=== PATIENT | female | born 1955 | race Caucasian/White ===

== ENCOUNTER → 2018-05-06 | Outpatient (CLI) | payer MEDICARE, OTHER ==
--- NOTE | 2018-05-16 15:41 | REP ---
Digital diagnostic bilateral mammography with CAD: History: History of right breast carcinoma status post lumpectomy and radiation therapy. The patient reports prior lumpectomies in 2003 and in 2018. The patient reports new indentation near the surgery site times 2 months. Report was delayed pending retrieval of prior breast imaging studies, the prior mammography is from July 23, 2017. Findings: Scattered fibroglandular elements are noted bilaterally. The left breast is unchanged and unremarkable on today's mammography and compared with the July 23, 2017 prior study. There is increased contour deformity in the upper outer quadrant of the right breast. There are some dystrophic calcifications in the upper outer quadrant of the right breast which are unchanged. No neodensity is seen. No mass lesion is observed. No microcalcification is observed. Impression: BI-RADS/ACR category 2 mammogram. Benign finding(s). Routine annual screening mammography (for women over age 40). There is contour indentation in the upper aspect of the right breast on MLO view more prominent than on the July 23, 2017 study. This is consistent with post-treatment changes. BI-RADS category 2 benign breast imaging findings. Clinical followup is advised. Repeat screening mammography recommended 1 year bilaterally. This mammogram was interpreted with the aid of an FDA-approved computer-aided detection system. The patient states she had a clinical breast exam in February 2018. The patient letter being requested is M2. Electronically Signed by Camden Delarosa MD 05/16/2018 07:44 P
== END ==
LOC: M RAD 13:22
PROVIDERS: ATTEND Internal Medicine Hematology & Oncology
DX: D05.11 Intraductal carcinoma in situ of right breast (principal); R92.1 Mammographic calcification found on diagnostic imaging of breast; Z90.11 Acquired absence of right breast and nipple

== ENCOUNTER → 2018-05-06 | Outpatient (CLI) | payer MEDICARE, OTHER ==
--- NOTE | 2018-05-11 15:20 | DEXA ---
AP SPINE L1 - L4 1.580 3.1 4.7 LT FEMUR TOTAL 0.988 -0.2 1.0 LT NECK 0.911 -0.9 0.5 RT FEMUR TOTAL 0.992 -0.1 1.1 RT NECK 0.909 -0.9 0.5 TOTAL BODY TOTAL OTHER COMMENTS: Normal bone densitometry of the spine and hips. The density of the spine is increased 12.3% since 11/01/2009. The density of the left hip has increased 5.7% since 11/01/2009. The density of the right hip has decreased 0.7% since 11/01/2009. The increased density of the spine does represent a significant change. The increased density of the left hip does represent a significant change. The decreased density of the right hip does not represent a significant change. FOLLOW-UP: Recommendation for the next bone density exam: 5 years. ESTEFANÍA
== END ==
LOC: M WHC 12:08
PROVIDERS: ATTEND Internal Medicine Hematology & Oncology
DX: M81.0 Age-related osteoporosis without current pathological fracture (principal); D05.11 Intraductal carcinoma in situ of right breast; R92.1 Mammographic calcification found on diagnostic imaging of breast; Z90.11 Acquired absence of right breast and nipple

== ENCOUNTER → 2018-11-07 | Outpatient (CLI) | payer MEDICARE, OTHER ==
[2018-11-07 15:38] LABS: BASO # 0.1 10^3/uL (0.0-0.2); BASO % 1.1 % (0.0-1.0); EOS # 0.2 10^3/uL (0.0-0.50); EOS % 2.1 % (0.0-3.0); HEMATOCRIT 29.8 % (36.0-47.0); HEMOGLOBIN 9.6 g/dl (12.0-15.5); LYMPH # 1.8 10^3/uL (1.5-4.5); MEAN CORPUSCULAR HEMOGLOBIN 30.8 pg (27.0-33.0); MEAN CORPUSCULAR HGB CONC 32.2 g/dl (32.0-36.5); MEAN CORPUSCULAR VOLUME 95.5 fl (80.0-96.0); MONO # 0.5 10^3/uL (0.0-0.8); MONO % 7.7 % (0.0-5.0); NEUTROPHILS # 4.3 10^3/uL (1.8-7.7); RED BLOOD COUNT 3.12 10^6/uL (4.00-5.40)
[2018-11-07 15:44] LABS: PLATELET COUNT, AUTOMATED 87 10^3/uL (150-450)
== END ==
LOC: M ADAMS 13:31
DX: D69.6 Thrombocytopenia, unspecified (principal)

== ENCOUNTER → 2018-11-14 | Outpatient (REF) | payer MEDICARE, OTHER ==
[2018-11-14 13:10] LABS: BASO # 0.1 10^3/uL (0.0-0.2); BASO % 1.5 % (0.0-1.0); EOS # 0.1 10^3/uL (0.0-0.50); EOS % 2.3 % (0.0-3.0); HEMATOCRIT 28.9 % (36.0-47.0); HEMOGLOBIN 9.2 g/dl (12.0-15.5); LYMPH # 1.7 10^3/uL (1.5-4.5); MEAN CORPUSCULAR HEMOGLOBIN 31.7 pg (27.0-33.0); MEAN CORPUSCULAR HGB CONC 31.8 g/dl (32.0-36.5); MEAN CORPUSCULAR VOLUME 99.7 fl (80.0-96.0); MONO # 0.5 10^3/uL (0.0-0.8); MONO % 8.8 % (0.0-5.0); NEUTROPHILS # 3.4 10^3/uL (1.8-7.7); WHITE BLOOD COUNT 6.1 10^3/uL (4.0-10.0)
[2018-11-14 13:11] LABS: PLATELET COUNT, AUTOMATED 99 10^3/uL (150-450)
== END ==
LOC: M LABDRWAD 12:08
DX: C88.0 Waldenstrom macroglobulinemia (principal); D69.9 Hemorrhagic condition, unspecified

== ENCOUNTER → 2018-12-28 | Outpatient (REF) | payer MEDICARE, OTHER ==
[2018-12-28 12:37] LABS: HEMATOCRIT 21.4 % (36.0-47.0); MEAN CORPUSCULAR HEMOGLOBIN 31.7 pg (27.0-33.0); MEAN CORPUSCULAR HGB CONC 30.8 g/dl (32.0-36.5); MEAN CORPUSCULAR VOLUME 102.9 fl (80.0-96.0); PLATELET COUNT, AUTOMATED 101 10^3/uL (150-450); RED BLOOD COUNT 2.08 10^6/uL (4.00-5.40); WHITE BLOOD COUNT 7.1 10^3/uL (4.0-10.0)
[2018-12-28 12:58] LABS: HEMOGLOBIN 6.6 g/dl (12.0-15.5)
[2018-12-28 13:13] LABS: ANISOCYTOSIS 1+; EOSINOPHILS 1 % (0-5); LYMPHOCYTES 27 % (16-52); METAMYELOCYTES 4 % (0-0); MONOCYTES 7 % (0-8); NEUTROPHILS 61 % (28-66); PLATELET ESTIMATE DECREASED (NORMAL)
== END ==
LOC: M LABDRWAD 11:52
DX: D69.6 Thrombocytopenia, unspecified (principal); C88.0 Waldenstrom macroglobulinemia

== ENCOUNTER → 2019-01-16 | Outpatient (REF) | payer MEDICARE, OTHER ==
[2019-01-16 19:58] LABS: HEMATOCRIT 20.6 % (36.0-47.0); MEAN CORPUSCULAR HEMOGLOBIN 32.5 pg (27.0-33.0); MEAN CORPUSCULAR HGB CONC 31.6 g/dl (32.0-36.5); PLATELET COUNT, AUTOMATED 112 10^3/uL (150-450)
[2019-01-16 20:02] LABS: HEMOGLOBIN 6.5 g/dl (12.0-15.5)
[2019-01-16 20:39] LABS: BASOPHILS 2 % (0-1); EOSINOPHILS 3 % (0-3); LYMPHOCYTES 18 % (16-44); METAMYELOCYTES 1 % (0-0); MONOCYTES 7 % (0-5); MYELOCYTES 1 % (0-0); NEUTROPHILS 63 % (28-66)
[2019-01-16 20:40] LABS: ANISOCYTOSIS 1+; PLATELET ESTIMATE DECREASED (NORMAL)
[2019-01-16 20:41] LABS: POLYCHROMASIA 1+
== END ==
LOC: M LABDRWAD 19:05
DX: C88.0 Waldenstrom macroglobulinemia (principal); D69.6 Thrombocytopenia, unspecified

== ENCOUNTER → 2019-01-30 | Outpatient (REF) | payer MEDICARE, OTHER ==
[2019-01-30 12:02] LABS: HEMATOCRIT 21.5 % (36.0-47.0); MEAN CORPUSCULAR HEMOGLOBIN 31.3 pg (27.0-33.0); MEAN CORPUSCULAR HGB CONC 31.2 g/dl (32.0-36.5); MEAN CORPUSCULAR VOLUME 100.5 fl (80.0-96.0); PLATELET COUNT, AUTOMATED 104 10^3/uL (150-450); RED BLOOD COUNT 2.14 10^6/uL (4.00-5.40); WHITE BLOOD COUNT 5.8 10^3/uL (4.0-10.0)
[2019-01-30 12:12] LABS: HEMOGLOBIN 6.7 g/dl (12.0-15.5)
[2019-01-30 12:58] LABS: BASOPHILS 2 % (0-1); EOSINOPHILS 1 % (0-3); LYMPHOCYTES 20 % (16-44); METAMYELOCYTES 2 % (0-0); MONOCYTES 4 % (0-5); MYELOCYTES 2 % (0-0); NEUTROPHILS 68 % (28-66)
[2019-01-30 12:59] LABS: ANISOCYTOSIS 2+; OVALOCYTES 1+; PLATELET ESTIMATE DECREASED (NORMAL)
== END ==
LOC: M LABDRWAD 11:13
PROVIDERS: ATTEND Internal Medicine Hematology & Oncology
DX: C85.90 Non-Hodgkin lymphoma, unspecified, unspecified site (principal)

== ENCOUNTER → 2019-02-02 | Outpatient (REF) | payer MEDICARE, OTHER ==
[2019-02-02 13:01] LABS: HEMATOCRIT 27.1 % (36.0-47.0); HEMOGLOBIN 8.7 g/dl (12.0-15.5); MEAN CORPUSCULAR HEMOGLOBIN 31.5 pg (27.0-33.0); MEAN CORPUSCULAR HGB CONC 32.1 g/dl (32.0-36.5); MEAN CORPUSCULAR VOLUME 98.2 fl (80.0-96.0); RED BLOOD COUNT 2.76 10^6/uL (4.00-5.40); WHITE BLOOD COUNT 5.2 10^3/uL (4.0-10.0)
[2019-02-02 13:48] LABS: PLATELET COUNT, AUTOMATED 89 10^3/uL (150-450)
[2019-02-02 13:56] LABS: ANISOCYTOSIS 1+; BASOPHILS 2 % (0-1); EOSINOPHILS 2 % (0-3); LYMPHOCYTES 24 % (16-44); METAMYELOCYTES 2 % (0-0); MONOCYTES 9 % (0-5); MYELOCYTES 3 % (0-0); NEUTROPHILS 57 % (28-66); OVALOCYTES 1+; PLATELET ESTIMATE DECREASED (NORMAL)
== END ==
LOC: M LABDRWAD 12:18
DX: C88.0 Waldenstrom macroglobulinemia (principal); D69.6 Thrombocytopenia, unspecified

== ENCOUNTER → 2019-02-15 | Outpatient (REF) | payer MEDICARE, OTHER ==
[2019-02-15 17:36] LABS: HEMATOCRIT 25.7 % (36.0-47.0); HEMOGLOBIN 8.2 g/dl (12.0-15.5); MEAN CORPUSCULAR HEMOGLOBIN 30.7 pg (27.0-33.0); MEAN CORPUSCULAR HGB CONC 31.9 g/dl (32.0-36.5); MEAN CORPUSCULAR VOLUME 96.3 fl (80.0-96.0); RED BLOOD COUNT 2.67 10^6/uL (4.00-5.40); WHITE BLOOD COUNT 5.3 10^3/uL (4.0-10.0)
[2019-02-15 18:03] LABS: PLATELET COUNT, AUTOMATED 89 10^3/uL (150-450)
[2019-02-15 18:25] LABS: ANISOCYTOSIS 2+; ATYPICAL LYMPH 3 % (0-5); BASOPHILS 2 % (0-1); LYMPHOCYTES 18 % (16-44); METAMYELOCYTES 2 % (0-0); MONOCYTES 8 % (0-5); NEUTROPHILS 62 % (28-66); PLATELET ESTIMATE DECREASED (NORMAL)
== END ==
LOC: M LABDRWAD 16:00
DX: D69.6 Thrombocytopenia, unspecified (principal); C88.0 Waldenstrom macroglobulinemia

== ENCOUNTER → 2019-02-23 | Outpatient (REF) | payer MEDICARE, OTHER ==
[2019-02-23 10:57] LABS: HEMATOCRIT 22.5 % (36.0-47.0); HEMOGLOBIN 7.3 g/dl (12.0-15.5); MEAN CORPUSCULAR HEMOGLOBIN 31.9 pg (27.0-33.0); MEAN CORPUSCULAR HGB CONC 32.4 g/dl (32.0-36.5); MEAN CORPUSCULAR VOLUME 98.3 fl (80.0-96.0); PLATELET COUNT, AUTOMATED 100 10^3/uL (150-450); RED BLOOD COUNT 2.29 10^6/uL (4.00-5.40); WHITE BLOOD COUNT 6.2 10^3/uL (4.0-10.0)
[2019-02-23 12:10] LABS: ANISOCYTOSIS 2+; ATYPICAL LYMPH 2 % (0-5); BASOPHILS 3 % (0-1); EOSINOPHILS 3 % (0-3); LYMPHOCYTES 25 % (16-44); METAMYELOCYTES 2 % (0-0); MONOCYTES 6 % (0-5); MYELOCYTES 2 % (0-0); NEUTROPHILS 56 % (28-66); PLATELET ESTIMATE DECREASED (NORMAL)
== END ==
LOC: M LABDRWAD 10:32
DX: D69.6 Thrombocytopenia, unspecified (principal); C88.0 Waldenstrom macroglobulinemia

== ENCOUNTER → 2019-04-12 | Outpatient (CLI) | payer MEDICARE, MEDICAID ==
[2019-04-12 16:41] LABS: BASO % 0.2 % (0.0-1.0); HEMATOCRIT 26.9 % (36.0-47.0); HEMOGLOBIN 8.7 g/dl (12.0-15.5); LYMPH # 1.2 10^3/uL (1.5-5.0); LYMPH % 11.8 % (24.0-44.0); MEAN CORPUSCULAR HEMOGLOBIN 32.7 pg (27.0-33.0); MEAN CORPUSCULAR HGB CONC 32.3 g/dl (32.0-36.5); MEAN CORPUSCULAR VOLUME 101.1 fl (80.0-96.0); MONO # 0.7 10^3/uL (0.0-0.8); NEUTROPHILS # 7.7 10^3/uL (1.5-8.5); NEUTROPHILS % 79.2 % (36.0-66.0); PLATELET COUNT, AUTOMATED 113 10^3/uL (150-450); RED BLOOD COUNT 2.66 10^6/uL (4.00-5.40); WHITE BLOOD COUNT 9.8 10^3/uL (4.0-10.0)
== END ==
LOC: M LAB 15:33
DX: C88.0 Waldenstrom macroglobulinemia (principal); D69.6 Thrombocytopenia, unspecified

== ENCOUNTER → 2019-05-09 | Outpatient (REF) | payer MEDICARE, MEDICAID ==
[2019-05-09 12:36] LABS: BASO # 0.1 10^3/uL (0.0-0.2); BASO % 1.6 % (0.0-1.0); EOS # 0.2 10^3/uL (0.0-0.5); EOS % 4.7 % (0.0-3.0); HEMATOCRIT 33.1 % (36.0-47.0); HEMOGLOBIN 10.3 g/dl (12.0-15.5); LYMPH # 1.3 10^3/uL (1.5-5.0); LYMPH % 28.1 % (24.0-44.0); MEAN CORPUSCULAR HEMOGLOBIN 32.7 pg (27.0-33.0); MEAN CORPUSCULAR HGB CONC 31.1 g/dl (32.0-36.5); MEAN CORPUSCULAR VOLUME 105.1 fl (80.0-96.0); MONO # 0.4 10^3/uL (0.0-0.8); MONO % 9.8 % (0.0-5.0); NEUTROPHILS # 2.3 10^3/uL (1.5-8.5); NEUTROPHILS % 51.1 % (36.0-66.0); PLATELET COUNT, AUTOMATED 129 10^3/uL (150-450); RED BLOOD COUNT 3.15 10^6/uL (4.00-5.40); WHITE BLOOD COUNT 4.5 10^3/uL (4.0-10.0)
== END ==
LOC: M LABDRWAD 12:16
PROVIDERS: ATTEND Nurse Practitioner Adult Health
DX: C85.90 Non-Hodgkin lymphoma, unspecified, unspecified site (principal)

== ENCOUNTER → 2019-07-20 | Outpatient (CLI) | payer MEDICARE, MEDICAID ==
--- NOTE | 2019-07-20 10:32 | REPMRS ---
Patient History The patient states she has not had a clinical breast exam in over a year. Patient is postmenopausal and has history of cancer in the left breast at age 48. Family history of colorectal cancer at age 80 in father, prostate cancer at age 50 in brother. Took tamoxifen for 5 years. Diagnostic Bilateral Mammo: July 20, 2019 - Exam #: [id number] Bilateral CC and MLO view(s) were taken. Technologist: Prema Baires, Technologist Prior study comparison: May 06, 2018, digital mammo diagnostic bilateral, performed at [facility]. July 23, 2017, digital mammo diagnostic bilateral, performed at [facility]. FINDINGS: There are scattered fibroglandular densities. There are stable post treatment changes in the roight breast. There has been no change in the appearance of the mammogram from the prior studies. There is a mild amount of scattered fibroglandular density which is fairly symmetric. There is no interval development of dominant mass, architectural distortion, or grouped microcalcification suggestive of malignancy. 3-D tomosynthesis shows no additional findings. Assessment: BI-RADS/ACR category 2 mammogram. Benign Findings. Recommendation Routine screening mammogram of both breasts in 1 year (for women over age 40).. This mammogram was interpreted with the aid of an FDA-approved computer-aided dectection system. Electronically Signed By: Florin Delarosa MD 07/20/19 [id number]
== END ==
LOC: M WHC 09:25
PROVIDERS: ATTEND Nurse Practitioner Family
DX: C50.911 Malignant neoplasm of unspecified site of right female breast (principal); Z17.0 Estrogen receptor positive status [ER+]; N63.10 Unspecified lump in the right breast, unspecified quadrant; R92.8 Other abnormal and inconclusive findings on diagnostic imaging of breast; Z78.0 Asymptomatic menopausal state; Z80.0 Family history of malignant neoplasm of digestive organs
CPT/HCPCS: 77066; G0279

== ENCOUNTER → 2019-08-17 | Outpatient (CLI) | payer MEDICARE, MEDICAID ==
[2019-08-17 19:10] LABS: BASO # 0.1 10^3/uL (0.0-0.2); BASO % 1.2 % (0.0-1.0); EOS # 0.2 10^3/uL (0.0-0.5); EOS % 3.1 % (0.0-3.0); HEMATOCRIT 34.1 % (36.0-47.0); HEMOGLOBIN 11.4 g/dl (12.0-15.5); LYMPH # 1.3 10^3/uL (1.5-5.0); LYMPH % 27.2 % (24.0-44.0); MEAN CORPUSCULAR HEMOGLOBIN 32.3 pg (27.0-33.0); MEAN CORPUSCULAR HGB CONC 33.4 g/dl (32.0-36.5); MEAN CORPUSCULAR VOLUME 96.6 fl (80.0-96.0); MONO # 0.4 10^3/uL (0.0-0.8); MONO % 9.1 % (0.0-5.0); NEUTROPHILS # 2.9 10^3/uL (1.5-8.5); PLATELET COUNT, AUTOMATED 139 10^3/uL (150-450); RED BLOOD COUNT 3.53 10^6/uL (4.00-5.40); WHITE BLOOD COUNT 4.9 10^3/uL (4.0-10.0)
[2019-08-17 20:07] LABS: ALBUMIN 3.6 GM/DL (3.2-5.2); ALT/SGPT 50 U/L (12-78); BLOOD UREA NITROGEN 16 MG/DL (7-18); CALCIUM LEVEL 9.1 MG/DL (8.8-10.2); CARBON DIOXIDE LEVEL 30 MEQ/L (21-32); CHLORIDE LEVEL 103 MEQ/L (98-107); CREATININE FOR GFR 0.91 MG/DL (0.55-1.30); GLOMERULAR FILTRATION RATE > 60.0 (>45); GLUCOSE, FASTING 90 MG/DL (70-100); IMMUNOGLOBULIN A 23.9 MG/DL (70-400); IMMUNOGLOBULIN G 279 MG/DL (681-1648); LDH LACTATE DEHYDROGENASE 156 U/L (84-246); POTASSIUM SERUM 4.1 MEQ/L (3.5-5.1); SODIUM LEVEL 139 MEQ/L (136-145); TOTAL PROTEIN 6.4 GM/DL (6.4-8.2)
== END ==
LOC: M LABDRWAD 15:21
PROVIDERS: ATTEND Nurse Practitioner Adult Health
DX: C85.90 Non-Hodgkin lymphoma, unspecified, unspecified site (principal)

== ENCOUNTER → 2019-09-28 | Outpatient (REF) | payer MEDICARE, MEDICAID ==
[2019-09-28 17:50] LABS: BASO # 0.1 10^3/uL (0.0-0.2); BASO % 1.1 % (0.0-1.0); EOS # 0.2 10^3/uL (0.0-0.5); EOS % 3.7 % (0.0-3.0); HEMATOCRIT 32.5 % (36.0-47.0); HEMOGLOBIN 10.8 g/dl (12.0-15.5); LYMPH # 1.6 10^3/uL (1.5-5.0); LYMPH % 29.7 % (24.0-44.0); MEAN CORPUSCULAR HEMOGLOBIN 32.3 pg (27.0-33.0); MEAN CORPUSCULAR HGB CONC 33.2 g/dl (32.0-36.5); MEAN CORPUSCULAR VOLUME 97.3 fl (80.0-96.0); MONO # 0.5 10^3/uL (0.0-0.8); MONO % 10.1 % (0.0-5.0); NEUTROPHILS # 2.9 10^3/uL (1.5-8.5); NEUTROPHILS % 54.7 % (36.0-66.0); PLATELET COUNT, AUTOMATED 139 10^3/uL (150-450); RED BLOOD COUNT 3.34 10^6/uL (4.00-5.40); WHITE BLOOD COUNT 5.4 10^3/uL (4.0-10.0)
[2019-09-28 18:49] LABS: ALBUMIN 3.6 GM/DL (3.2-5.2); BILIRUBIN,TOTAL 0.8 MG/DL (0.2-1.0); CALCIUM LEVEL 8.5 MG/DL (8.8-10.2); CREATININE FOR GFR 1.01 MG/DL (0.55-1.30); GLOMERULAR FILTRATION RATE 58.4 (>45); IMMUNOGLOBULIN A 23.5 MG/DL (70-400); POTASSIUM SERUM 4.1 MEQ/L (3.5-5.1); TOTAL PROTEIN 6.4 GM/DL (6.4-8.2)
== END ==
LOC: M LABDRWAD 16:47
PROVIDERS: ATTEND Nurse Practitioner Adult Health
DX: C85.90 Non-Hodgkin lymphoma, unspecified, unspecified site (principal)

== ENCOUNTER → 2019-12-28 | Outpatient (REF) | payer MEDICARE, MEDICAID ==
[2019-12-28 19:27] LABS: BASO # 0.1 10^3/uL (0.0-0.2); BASO % 1.4 % (0.0-1.0); EOS # 0.2 10^3/uL (0.0-0.5); EOS % 2.8 % (0.0-3.0); HEMATOCRIT 34.3 % (36.0-47.0); HEMOGLOBIN 11.1 g/dl (12.0-15.5); LYMPH # 1.3 10^3/uL (1.5-5.0); LYMPH % 22.2 % (24.0-44.0); MEAN CORPUSCULAR HEMOGLOBIN 32.5 pg (27.0-33.0); MEAN CORPUSCULAR HGB CONC 32.4 g/dl (32.0-36.5); MEAN CORPUSCULAR VOLUME 100.3 fl (80.0-96.0); MONO # 0.5 10^3/uL (0.0-0.8); NEUTROPHILS # 3.7 10^3/uL (1.5-8.5); NEUTROPHILS % 63.7 % (36.0-66.0); PLATELET COUNT, AUTOMATED 126 10^3/uL (150-450); RED BLOOD COUNT 3.42 10^6/uL (4.00-5.40); WHITE BLOOD COUNT 5.8 10^3/uL (4.0-10.0)
[2019-12-28 20:21] LABS: BILIRUBIN,TOTAL 0.9 MG/DL (0.2-1.0); CALCIUM LEVEL 8.8 MG/DL (8.8-10.2); CREATININE FOR GFR 1.06 MG/DL (0.55-1.30); GLOMERULAR FILTRATION RATE 55.2 (>45); IMMUNOGLOBULIN A 28.8 MG/DL (70-400); POTASSIUM SERUM 4.2 MEQ/L (3.5-5.1); TOTAL PROTEIN 6.8 GM/DL (6.4-8.2)
== END ==
LOC: M LABDRWAD 18:05
PROVIDERS: ATTEND Internal Medicine Hematology & Oncology
DX: C88.0 Waldenstrom macroglobulinemia (principal)

== ENCOUNTER → 2020-03-28 | Outpatient (REF) | payer MEDICARE, MEDICAID ==
[2020-03-28 13:01] LABS: BASO # 0.1 10^3/uL (0.0-0.2); BASO % 1.2 % (0.0-1.0); EOS # 0.2 10^3/uL (0.0-0.5); EOS % 4.7 % (0.0-3.0); HEMATOCRIT 34.2 % (36.0-47.0); HEMOGLOBIN 10.8 g/dl (12.0-15.5); LYMPH # 1.2 10^3/uL (1.5-5.0); LYMPH % 25.4 % (24.0-44.0); MEAN CORPUSCULAR HEMOGLOBIN 31.7 pg (27.0-33.0); MEAN CORPUSCULAR HGB CONC 31.6 g/dl (32.0-36.5); MEAN CORPUSCULAR VOLUME 100.3 fl (80.0-96.0); MONO # 0.6 10^3/uL (0.0-0.8); MONO % 11.5 % (0.0-5.0); NEUTROPHILS # 2.7 10^3/uL (1.5-8.5); NEUTROPHILS % 54.7 % (36.0-66.0); PLATELET COUNT, AUTOMATED 106 10^3/uL (150-450); RED BLOOD COUNT 3.41 10^6/uL (4.00-5.40); WHITE BLOOD COUNT 4.9 10^3/uL (4.0-10.0)
[2020-03-28 14:05] LABS: ALBUMIN 3.7 GM/DL (3.2-5.2); ALT/SGPT 25 U/L (12-78); BILIRUBIN,TOTAL 0.8 MG/DL (0.2-1.0); BLOOD UREA NITROGEN 19 MG/DL (7-18); CARBON DIOXIDE LEVEL 30 MEQ/L (21-32); CHLORIDE LEVEL 102 MEQ/L (98-107); CREATININE FOR GFR 0.96 MG/DL (0.55-1.30); GLOMERULAR FILTRATION RATE > 60.0 (>45); GLUCOSE, FASTING 74 MG/DL (70-100); IMMUNOGLOBULIN A 29.2 MG/DL (70-400); IMMUNOGLOBULIN G 337 MG/DL (681-1648); POTASSIUM SERUM 4.3 MEQ/L (3.5-5.1); SODIUM LEVEL 137 MEQ/L (136-145); TOTAL PROTEIN 6.5 GM/DL (6.4-8.2)
== END ==
LOC: M LABDRWAD 12:29
PROVIDERS: ATTEND Internal Medicine Hematology & Oncology
DX: C88.0 Waldenstrom macroglobulinemia (principal)

== ENCOUNTER → 2020-07-15 | Outpatient (REF) | payer MEDICARE, MEDICAID ==
[2020-07-15 17:01] LABS: HEMATOCRIT 26.8 % (36.0-47.0); HEMOGLOBIN 8.2 g/dl (12.0-15.5); MEAN CORPUSCULAR HGB CONC 30.6 g/dl (32.0-36.5); MEAN CORPUSCULAR VOLUME 104.7 fl (80.0-96.0); RED BLOOD COUNT 2.56 10^6/uL (4.00-5.40); WHITE BLOOD COUNT 4.8 10^3/uL (4.0-10.0)
[2020-07-15 17:04] LABS: PLATELET COUNT, AUTOMATED 90 10^3/uL (150-450)
[2020-07-15 18:05] LABS: ALBUMIN 3.8 GM/DL (3.2-5.2); CALCIUM LEVEL 8.6 MG/DL (8.8-10.2); CREATININE FOR GFR 1.08 MG/DL (0.55-1.30); GLOMERULAR FILTRATION RATE 53.9 (>45); IMMUNOGLOBULIN A 27.5 MG/DL (70-400); POTASSIUM SERUM 4.3 MEQ/L (3.5-5.1); TOTAL PROTEIN 6.7 GM/DL (6.4-8.2)
[2020-07-15 19:34] LABS: ATYPICAL LYMPH 2 % (0-5); BASOPHILS 2 % (0-1); EOSINOPHILS 4 % (0-3); LYMPHOCYTES 35 % (16-44); MONOCYTES 11 % (0-5); NEUTROPHILS 45 % (28-66)
[2020-07-15 19:36] LABS: ANISOCYTOSIS 1+
[2020-07-15 19:37] LABS: PLATELET ESTIMATE DECREASED (NORMAL)
== END ==
LOC: M LABDRWAD 16:05
PROVIDERS: ATTEND Nurse Practitioner Family
DX: C88.0 Waldenstrom macroglobulinemia (principal)

== ENCOUNTER → 2020-09-30 | Outpatient (REF) | payer OTHER, MEDICAID ==
[~2020-09-30] MED LIST: BENDAMUSTINE; CALC600T61 PO; CELE10TA PO; FOLI400T13 PO; LETR2.5T2 PO; [UNRECOGNIZED DRUG - OTHER]; vitamin d3 PO
[2020-09-30 18:20] LABS: BASO % 0.9 % (0.0-1.0); EOS # 0.2 10^3/uL (0.0-0.5); EOS % 4.1 % (0.0-3.0); HEMATOCRIT 21.5 % (36.0-47.0); LYMPH # 1.2 10^3/uL (1.5-5.0); LYMPH % 26.3 % (24.0-44.0); MEAN CORPUSCULAR HEMOGLOBIN 32.5 pg (27.0-33.0); MEAN CORPUSCULAR HGB CONC 30.2 g/dl (32.0-36.5); MEAN CORPUSCULAR VOLUME 107.5 fl (80.0-96.0); MONO # 0.4 10^3/uL (0.0-0.8); NEUTROPHILS # 2.6 10^3/uL (1.5-8.5); NEUTROPHILS % 55.7 % (36.0-66.0); WHITE BLOOD COUNT 4.6 10^3/uL (4.0-10.0)
[2020-09-30 18:50] LABS: ALBUMIN 3.6 GM/DL (3.2-5.2); ALT/SGPT 17 U/L (12-78); BILIRUBIN,TOTAL 1.3 MG/DL (0.2-1.0); BLOOD UREA NITROGEN 18 MG/DL (7-18); CALCIUM LEVEL 8.6 MG/DL (8.8-10.2); CARBON DIOXIDE LEVEL 26 MEQ/L (21-32); CHLORIDE LEVEL 103 MEQ/L (98-107); CREATININE FOR GFR 0.98 MG/DL (0.55-1.30); GLOMERULAR FILTRATION RATE > 60.0 (>45); GLUCOSE, FASTING 95 MG/DL (70-100); IMMUNOGLOBULIN G 317 MG/DL (681-1648); LDH LACTATE DEHYDROGENASE 269 U/L (84-246); POTASSIUM SERUM 4.1 MEQ/L (3.5-5.1); SODIUM LEVEL 137 MEQ/L (136-145); TOTAL PROTEIN 6.7 GM/DL (6.4-8.2)
[2020-09-30 19:00] LABS: HEMOGLOBIN 6.5 g/dl (12.0-15.5); PLATELET COUNT, AUTOMATED 82 10^3/uL (150-450)
== END ==
LOC: M LABDRWAD 16:27 → M LAB REF 16:27
PROVIDERS: ATTEND Nurse Practitioner Family
DX: D64.9 Anemia, unspecified (principal)

== ENCOUNTER → 2020-10-03 | Outpatient (REF) | payer OTHER, MEDICAID ==
[2020-10-03 12:58] LABS: BASO # 0.1 10^3/uL (0.0-0.2); BASO % 1.8 % (0.0-1.0); EOS # 0.2 10^3/uL (0.0-0.5); HEMATOCRIT 31.1 % (36.0-47.0); HEMOGLOBIN 9.8 g/dl (12.0-15.5); LYMPH # 1.2 10^3/uL (1.5-5.0); LYMPH % 27.3 % (24.0-44.0); MEAN CORPUSCULAR HEMOGLOBIN 31.1 pg (27.0-33.0); MEAN CORPUSCULAR HGB CONC 31.5 g/dl (32.0-36.5); MEAN CORPUSCULAR VOLUME 98.7 fl (80.0-96.0); MONO # 0.4 10^3/uL (0.0-0.8); NEUTROPHILS # 2.4 10^3/uL (1.5-8.5); NEUTROPHILS % 54.2 % (36.0-66.0); RED BLOOD COUNT 3.15 10^6/uL (4.00-5.40); WHITE BLOOD COUNT 4.5 10^3/uL (4.0-10.0)
[2020-10-03 13:00] LABS: PLATELET COUNT, AUTOMATED 90 10^3/uL (150-450)
== END ==
LOC: M LABDRWAD 12:24
PROVIDERS: ATTEND Nurse Practitioner Family
DX: D64.9 Anemia, unspecified (principal)

== ENCOUNTER → 2020-10-10 | Outpatient (REF) | payer OTHER, MEDICAID ==
[2020-10-10 17:56] LABS: BASO # 0.1 10^3/uL (0.0-0.2); BASO % 1.4 % (0.0-1.0); EOS # 0.1 10^3/uL (0.0-0.5); EOS % 3.5 % (0.0-3.0); HEMATOCRIT 27.3 % (36.0-47.0); HEMOGLOBIN 8.4 g/dl (12.0-15.5); LYMPH % 25.9 % (24.0-44.0); MEAN CORPUSCULAR HGB CONC 30.8 g/dl (32.0-36.5); MEAN CORPUSCULAR VOLUME 100.7 fl (80.0-96.0); MONO # 0.4 10^3/uL (0.0-0.8); MONO % 9.5 % (2.0-8.0); NEUTROPHILS % 54.8 % (36.0-66.0); PLATELET COUNT, AUTOMATED 80 10^3/uL (150-450); RED BLOOD COUNT 2.71 10^6/uL (4.00-5.40); WHITE BLOOD COUNT 3.7 10^3/uL (4.0-10.0)
== END ==
LOC: M PLALAB 16:53
PROVIDERS: ATTEND Nurse Practitioner Family
DX: D64.9 Anemia, unspecified (principal)

== ENCOUNTER 2020-10-24 20:16 | Emergency (ER) | payer OTHER, MEDICAID ==
[~2020-10-24] VITALS: Ht 160 cm; Wt 63.5 kg
[2020-10-24] MEDS ORDERED: LETR2.5T2 PO (20:35)
[2020-10-24] MEDS ORDERED: CALC600T61 PO (20:38)
[2020-10-24] MEDS ORDERED: CELE10TA PO (20:38)
[2020-10-24] MEDS ORDERED: vitamin d3 PO (20:38)
[2020-10-24] MEDS ORDERED: FOLI400T13 PO (20:38)
[2020-10-24] MEDS ORDERED: [UNRECOGNIZED DRUG - OTHER] (20:40)
[2020-10-24] MEDS ORDERED: BENDAMUSTINE (20:40)
[2020-10-24 22:31] LABS: MEAN CORPUSCULAR HEMOGLOBIN 30.4 pg (27.0-33.0); MEAN CORPUSCULAR HGB CONC 31.8 g/dl (32.0-36.5); MEAN CORPUSCULAR VOLUME 95.7 fl (80.0-96.0); WHITE BLOOD COUNT 1.6 10^3/uL (4.0-10.0)
[2020-10-24 22:52] LABS: PLATELET COUNT, AUTOMATED 86 10^3/uL (150-450)
[2020-10-24 23:05] LABS: BASOPHILS 2 % (0-1); EOSINOPHILS 4 % (0-3); LYMPHOCYTES 6 % (16-44); MONOCYTES 10 % (0-5); NEUTROPHILS 74 % (28-66)
[2020-10-24 23:06] LABS: ANISOCYTOSIS 1+; PLATELET ESTIMATE DECREASED (NORMAL)
[2020-10-24 23:16] LABS: ALBUMIN 3.2 GM/DL (3.2-5.2); BILIRUBIN,DIRECT 0.4 MG/DL (0.0-0.2); BILIRUBIN,TOTAL 2.2 MG/DL (0.2-1.0); CALCIUM LEVEL 7.9 MG/DL (8.8-10.2); CREATININE FOR GFR 1.06 MG/DL (0.55-1.30); POTASSIUM SERUM 4.1 MEQ/L (3.5-5.1); TOTAL PROTEIN 5.8 GM/DL (6.4-8.2)
--- NOTE | 2020-10-24 23:21 | REPVR ---
PROCEDURE INFORMATION: Exam: XR Chest Exam date and time: 10/24/20 (9:44pm) Age: 65 years old Clinical indication: Fever TECHNIQUE: Imaging protocol: XR of the chest Views: 2 views COMPARISON: No relevant prior studies available FINDINGS: Lungs: Unremarkable. No consolidation. Pleural spaces: Unremarkable. No pleural effusions. No pneumothorax. Heart/Mediastinum: Unremarkable. No cardiomegaly. Bones/joints: Unremarkable. Other findings: Small right axillary surgical clips. IMPRESSION: No acute findings. Electronically signed by: Beatrice Weinstein On 10/24/2020 23:20:45 PM
[2020-10-25 01:00] VITALS: BP 137/60
== END 2020-10-25 02:38 | disposition home or self-care (01) ==
LOC: M ED 20:16
DX: C88.0 Waldenstrom macroglobulinemia (principal); D64.9 Anemia, unspecified; F33.9 Major depressive disorder, recurrent, unspecified; Z85.3 Personal history of malignant neoplasm of breast; Z79.899 Other long term (current) drug therapy; Z88.8 Allergy status to other drugs, medicaments and biological substances

== ENCOUNTER → 2020-10-31 | Outpatient (REF) | payer OTHER, MEDICAID ==
[2020-10-31 13:50] LABS: HEMATOCRIT 26.9 % (36.0-47.0); HEMOGLOBIN 8.5 g/dl (12.0-15.5); MEAN CORPUSCULAR HEMOGLOBIN 30.1 pg (27.0-33.0); MEAN CORPUSCULAR HGB CONC 31.6 g/dl (32.0-36.5); MEAN CORPUSCULAR VOLUME 95.4 fl (80.0-96.0); RED BLOOD COUNT 2.82 10^6/uL (4.00-5.40); WHITE BLOOD COUNT 1.4 10^3/uL (4.0-10.0)
[2020-10-31 14:39] LABS: PLATELET COUNT, AUTOMATED 91 10^3/uL (150-450)
[2020-10-31 15:11] LABS: ATYPICAL LYMPH 2 % (0-5); BASOPHILS 4 % (0-1); EOSINOPHILS 10 % (0-3); LYMPHOCYTES 32 % (16-44); MONOCYTES 6 % (0-5); NEUTROPHILS 43 % (28-66)
[2020-10-31 15:12] LABS: ANISOCYTOSIS 1+; PLATELET ESTIMATE DECREASED (NORMAL)
== END ==
LOC: M LABDRWAD 12:29
PROVIDERS: ATTEND Nurse Practitioner Family
DX: C88.0 Waldenstrom macroglobulinemia (principal)

== ENCOUNTER → 2020-11-12 | Outpatient (REF) | payer OTHER, MEDICAID ==
[2020-11-12 15:32] LABS: HEMATOCRIT 21.7 % (36.0-47.0); MEAN CORPUSCULAR HEMOGLOBIN 29.5 pg (27.0-33.0); MEAN CORPUSCULAR HGB CONC 32.3 g/dl (32.0-36.5); MEAN CORPUSCULAR VOLUME 91.6 fl (80.0-96.0); RED BLOOD COUNT 2.37 10^6/uL (4.00-5.40); WHITE BLOOD COUNT 2.1 10^3/uL (4.0-10.0)
[2020-11-12 15:34] LABS: PLATELET COUNT, AUTOMATED 67 10^3/uL (150-450)
[2020-11-12 16:28] LABS: ATYPICAL LYMPH 13 % (0-5); BASOPHILS 4 % (0-1); EOSINOPHILS 3 % (0-3); LYMPHOCYTES 33 % (16-44); MONOCYTES 3 % (0-5); NEUTROPHILS 41 % (28-66); PLATELET ESTIMATE DECREASED (NORMAL)
== END ==
LOC: M LABDRWAD 15:06
PROVIDERS: ATTEND Internal Medicine Hematology & Oncology
DX: C88.0 Waldenstrom macroglobulinemia (principal); C85.90 Non-Hodgkin lymphoma, unspecified, unspecified site

== ENCOUNTER → 2020-11-26 | Outpatient (REF) | payer OTHER, MEDICAID ==
[2020-11-26 14:27] LABS: BASO % 0.5 % (0.0-1.0); EOS # 0.2 10^3/uL (0.0-0.5); EOS % 11.7 % (0.0-3.0); HEMATOCRIT 26.2 % (36.0-47.0); HEMOGLOBIN 8.5 g/dl (12.0-15.5); LYMPH # 0.7 10^3/uL (1.5-5.0); LYMPH % 33.5 % (24.0-44.0); MEAN CORPUSCULAR HEMOGLOBIN 30.9 pg (27.0-33.0); MEAN CORPUSCULAR HGB CONC 32.4 g/dl (32.0-36.5); MEAN CORPUSCULAR VOLUME 95.3 fl (80.0-96.0); MONO # 0.2 10^3/uL (0.0-0.8); MONO % 9.7 % (2.0-8.0); NEUTROPHILS % 44.1 % (36.0-66.0); RED BLOOD COUNT 2.75 10^6/uL (4.00-5.40); WHITE BLOOD COUNT 2.1 10^3/uL (4.0-10.0)
[2020-11-26 14:53] LABS: NEUTROPHILS # 0.9 10^3/uL (1.5-8.5); PLATELET COUNT, AUTOMATED 85 10^3/uL (150-450)
== END ==
LOC: M LABDRWAD 12:36
PROVIDERS: ATTEND Nurse Practitioner Family
DX: D64.9 Anemia, unspecified (principal)

== ENCOUNTER → 2020-12-02 | Outpatient (REF) | payer OTHER, MEDICAID ==
[2020-12-02 13:56] LABS: BASO % 1.3 % (0.0-1.0); EOS # 0.2 10^3/uL (0.0-0.5); EOS % 9.6 % (0.0-3.0); HEMATOCRIT 26.8 % (36.0-47.0); HEMOGLOBIN 8.6 g/dl (12.0-15.5); LYMPH # 0.7 10^3/uL (1.5-5.0); LYMPH % 30.9 % (24.0-44.0); MEAN CORPUSCULAR HEMOGLOBIN 31.5 pg (27.0-33.0); MEAN CORPUSCULAR HGB CONC 32.1 g/dl (32.0-36.5); MEAN CORPUSCULAR VOLUME 98.2 fl (80.0-96.0); MONO # 0.2 10^3/uL (0.0-0.8); MONO % 9.1 % (2.0-8.0); NEUTROPHILS # 1.1 10^3/uL (1.5-8.5); NEUTROPHILS % 49.1 % (36.0-66.0); PLATELET COUNT, AUTOMATED 110 10^3/uL (150-450); RED BLOOD COUNT 2.73 10^6/uL (4.00-5.40); WHITE BLOOD COUNT 2.3 10^3/uL (4.0-10.0)
== END ==
LOC: M LABDRWAD 12:51
PROVIDERS: ATTEND Nurse Practitioner Family
DX: D64.9 Anemia, unspecified (principal)

== ENCOUNTER → 2020-12-11 | Outpatient (REF) | payer OTHER, MEDICAID ==
[2020-12-11 18:41] LABS: HEMOGLOBIN 8.6 g/dl (12.0-15.5); MEAN CORPUSCULAR HEMOGLOBIN 33.2 pg (27.0-33.0); MEAN CORPUSCULAR HGB CONC 33.1 g/dl (32.0-36.5); MEAN CORPUSCULAR VOLUME 100.4 fl (80.0-96.0); PLATELET COUNT, AUTOMATED 104 10^3/uL (150-450); RED BLOOD COUNT 2.59 10^6/uL (4.00-5.40); WHITE BLOOD COUNT 2.7 10^3/uL (4.0-10.0)
[2020-12-11 21:01] LABS: EOSINOPHILS 4 % (0-3); LYMPHOCYTES 7 % (16-44); MONOCYTES 5 % (0-5); NEUTROPHILS 82 % (28-66)
[2020-12-11 21:02] LABS: ANISOCYTOSIS 3+; OVALOCYTES 1+; PLATELET ESTIMATE NORMAL (NORMAL); POIKILOCYTOSIS 2+
[2020-12-11 21:03] LABS: SCHISTOCYTES 1+
== END ==
LOC: M LABDRWAD 17:48
PROVIDERS: ATTEND Nurse Practitioner Family
DX: D64.9 Anemia, unspecified (principal)

== ENCOUNTER → 2020-12-25 | Outpatient (REF) | payer OTHER, MEDICAID ==
[2020-12-25 13:21] LABS: BASO % 1.4 % (0.0-1.0); EOS # 0.2 10^3/uL (0.0-0.5); EOS % 8.9 % (0.0-3.0); HEMATOCRIT 27.2 % (36.0-47.0); LYMPH # 0.4 10^3/uL (1.5-5.0); LYMPH % 16.4 % (24.0-44.0); MEAN CORPUSCULAR HEMOGLOBIN 34.1 pg (27.0-33.0); MEAN CORPUSCULAR HGB CONC 33.1 g/dl (32.0-36.5); MONO # 0.3 10^3/uL (0.0-0.8); NEUTROPHILS # 1.2 10^3/uL (1.5-8.5); NEUTROPHILS % 56.8 % (36.0-66.0); PLATELET COUNT, AUTOMATED 128 10^3/uL (150-450); RED BLOOD COUNT 2.64 10^6/uL (4.00-5.40); WHITE BLOOD COUNT 2.1 10^3/uL (4.0-10.0)
== END ==
LOC: M LABDRWAD 12:49
PROVIDERS: ATTEND Nurse Practitioner Family
DX: D64.9 Anemia, unspecified (principal)

== ENCOUNTER → 2021-01-09 | Outpatient (REF) | payer OTHER, MEDICAID ==
[2021-01-09 15:01] LABS: BASO % 1.2 % (0.0-1.0); EOS # 0.2 10^3/uL (0.0-0.5); EOS % 8.8 % (0.0-3.0); HEMATOCRIT 29.1 % (36.0-47.0); HEMOGLOBIN 9.6 g/dl (12.0-15.5); LYMPH # 0.1 10^3/uL (1.5-5.0); LYMPH % 5.9 % (24.0-44.0); MEAN CORPUSCULAR HEMOGLOBIN 34.3 pg (27.0-33.0); MEAN CORPUSCULAR VOLUME 103.9 fl (80.0-96.0); MONO # 0.2 10^3/uL (0.0-0.8); MONO % 11.8 % (2.0-8.0); NEUTROPHILS # 1.2 10^3/uL (1.5-8.5); NEUTROPHILS % 71.1 % (36.0-66.0); PLATELET COUNT, AUTOMATED 104 10^3/uL (150-450); WHITE BLOOD COUNT 1.7 10^3/uL (4.0-10.0)
== END ==
LOC: M LABDRWAD 14:41
PROVIDERS: ATTEND Nurse Practitioner Family
DX: D64.9 Anemia, unspecified (principal)

== ENCOUNTER → 2021-01-14 | Outpatient (REF) | payer OTHER, MEDICAID ==
[2021-01-14 18:08] LABS: HEMATOCRIT 29.1 % (36.0-47.0); HEMOGLOBIN 9.5 g/dl (12.0-15.5); MEAN CORPUSCULAR HEMOGLOBIN 34.3 pg (27.0-33.0); MEAN CORPUSCULAR HGB CONC 32.6 g/dl (32.0-36.5); MEAN CORPUSCULAR VOLUME 105.1 fl (80.0-96.0); PLATELET COUNT, AUTOMATED 111 10^3/uL (150-450); RED BLOOD COUNT 2.77 10^6/uL (4.00-5.40)
[2021-01-14 20:52] LABS: ATYPICAL LYMPH 5 % (0-5); BASOPHILS 1 % (0-1); EOSINOPHILS 10 % (0-3); LYMPHOCYTES 12 % (16-44); MONOCYTES 19 % (0-5); NEUTROPHILS 52 % (28-66)
[2021-01-14 20:53] LABS: PLATELET ESTIMATE DECREASED (NORMAL)
== END ==
LOC: M LABDRWAD 16:53
PROVIDERS: ATTEND Nurse Practitioner Family
DX: D64.9 Anemia, unspecified (principal)

== ENCOUNTER → 2021-01-22 | Outpatient (REF) | payer OTHER, MEDICAID ==
[2021-01-22 18:32] LABS: BASO % 1.8 % (0.0-1.0); EOS # 0.2 10^3/uL (0.0-0.5); EOS % 6.9 % (0.0-3.0); HEMATOCRIT 30.9 % (36.0-47.0); HEMOGLOBIN 10.4 g/dl (12.0-15.5); LYMPH # 0.6 10^3/uL (1.5-5.0); LYMPH % 29.5 % (24.0-44.0); MEAN CORPUSCULAR HEMOGLOBIN 35.1 pg (27.0-33.0); MEAN CORPUSCULAR HGB CONC 33.7 g/dl (32.0-36.5); MEAN CORPUSCULAR VOLUME 104.4 fl (80.0-96.0); MONO # 0.4 10^3/uL (0.0-0.8); MONO % 16.6 % (2.0-8.0); NEUTROPHILS % 44.3 % (36.0-66.0); PLATELET COUNT, AUTOMATED 128 10^3/uL (150-450); RED BLOOD COUNT 2.96 10^6/uL (4.00-5.40); WHITE BLOOD COUNT 2.2 10^3/uL (4.0-10.0)
== END ==
LOC: M LABDRWAD 18:06
PROVIDERS: ATTEND Nurse Practitioner Family
DX: D64.9 Anemia, unspecified (principal)

== ENCOUNTER → 2021-01-28 | Outpatient (REF) | payer OTHER, MEDICAID ==
[2021-01-28 13:11] LABS: HEMATOCRIT 30.6 % (36.0-47.0); HEMOGLOBIN 10.4 g/dl (12.0-15.5); MEAN CORPUSCULAR HEMOGLOBIN 35.3 pg (27.0-33.0); MEAN CORPUSCULAR VOLUME 103.7 fl (80.0-96.0); PLATELET COUNT, AUTOMATED 103 10^3/uL (150-450); RED BLOOD COUNT 2.95 10^6/uL (4.00-5.40); WHITE BLOOD COUNT 1.6 10^3/uL (4.0-10.0)
[2021-01-28 13:44] LABS: ATYPICAL LYMPH 1 % (0-5); BASOPHILS 2 % (0-1); EOSINOPHILS 9 % (0-3); LYMPHOCYTES 48 % (16-44); MONOCYTES 2 % (0-5); NEUTROPHILS 38 % (28-66); PLATELET ESTIMATE DECREASED (NORMAL)
[2021-01-28 15:36] LABS: BASO # 0.1 10^3/uL (0.0-0.2); BASO % 3.1 % (0.0-1.0); EOS # 0.1 10^3/uL (0.0-0.5); EOS % 6.7 % (0.0-3.0); LYMPH # 0.7 10^3/uL (1.5-5.0); LYMPH % 44.2 % (24.0-44.0); MONO # 0.3 10^3/uL (0.0-0.8); MONO % 17.8 % (2.0-8.0); NEUTROPHILS % 25.1 % (36.0-66.0)
[2021-01-28 15:37] LABS: NEUTROPHILS # 0.4 10^3/uL (1.5-8.5)
== END ==
LOC: M LABDRWAD 12:47
PROVIDERS: ATTEND Nurse Practitioner Family
DX: D64.9 Anemia, unspecified (principal)

== ENCOUNTER → 2021-02-06 | Outpatient (REF) | payer OTHER, MEDICAID ==
[2021-02-06 12:54] LABS: BASO % 1.8 % (0.0-1.0); EOS # 0.2 10^3/uL (0.0-0.5); EOS % 9.8 % (0.0-3.0); HEMATOCRIT 35.5 % (36.0-47.0); HEMOGLOBIN 12.1 g/dl (12.0-15.5); LYMPH # 0.7 10^3/uL (1.5-5.0); LYMPH % 42.7 % (24.0-44.0); MEAN CORPUSCULAR HEMOGLOBIN 34.9 pg (27.0-33.0); MEAN CORPUSCULAR HGB CONC 34.1 g/dl (32.0-36.5); MEAN CORPUSCULAR VOLUME 102.3 fl (80.0-96.0); MONO # 0.2 10^3/uL (0.0-0.8); NEUTROPHILS % 31.1 % (36.0-66.0); PLATELET COUNT, AUTOMATED 116 10^3/uL (150-450); RED BLOOD COUNT 3.47 10^6/uL (4.00-5.40); WHITE BLOOD COUNT 1.6 10^3/uL (4.0-10.0)
[2021-02-06 13:56] LABS: NEUTROPHILS # 0.5 10^3/uL (1.5-8.5)
== END ==
LOC: M LABDRWAD 12:37
PROVIDERS: ATTEND Nurse Practitioner Family
DX: D64.9 Anemia, unspecified (principal)

== ENCOUNTER → 2021-02-13 | Outpatient (REF) | payer OTHER, MEDICAID ==
[2021-02-13 16:27] LABS: BASO % 2.3 % (0.0-1.0); EOS # 0.1 10^3/uL (0.0-0.5); EOS % 6.8 % (0.0-3.0); HEMATOCRIT 33.4 % (36.0-47.0); HEMOGLOBIN 11.5 g/dl (12.0-15.5); LYMPH # 0.5 10^3/uL (1.5-5.0); LYMPH % 29.4 % (24.0-44.0); MEAN CORPUSCULAR HEMOGLOBIN 34.8 pg (27.0-33.0); MEAN CORPUSCULAR HGB CONC 34.4 g/dl (32.0-36.5); MEAN CORPUSCULAR VOLUME 101.2 fl (80.0-96.0); MONO # 0.4 10^3/uL (0.0-0.8); MONO % 19.8 % (2.0-8.0); NEUTROPHILS % 40.6 % (36.0-66.0); PLATELET COUNT, AUTOMATED 113 10^3/uL (150-450); WHITE BLOOD COUNT 1.8 10^3/uL (4.0-10.0)
[2021-02-13 18:02] LABS: NEUTROPHILS # 0.7 10^3/uL (1.5-8.5)
== END ==
LOC: M LABDRWAD 15:58
PROVIDERS: ATTEND Nurse Practitioner Family
DX: D64.9 Anemia, unspecified (principal)

== ENCOUNTER → 2021-02-20 | Outpatient (REF) | payer OTHER, MEDICAID ==
[2021-02-20 14:56] LABS: EOS % 6.8 % (0.0-3.0); HEMATOCRIT 34.3 % (36.0-47.0); HEMOGLOBIN 11.7 g/dl (12.0-15.5); LYMPH % 32.6 % (24.0-44.0); MEAN CORPUSCULAR HEMOGLOBIN 34.7 pg (27.0-33.0); MEAN CORPUSCULAR HGB CONC 34.1 g/dl (32.0-36.5); MEAN CORPUSCULAR VOLUME 101.8 fl (80.0-96.0); MONO % 17.9 % (2.0-8.0); NEUTROPHILS % 40.6 % (36.0-66.0); PLATELET COUNT, AUTOMATED 116 10^3/uL (150-450); RED BLOOD COUNT 3.37 10^6/uL (4.00-5.40); WHITE BLOOD COUNT 1.9 10^3/uL (4.0-10.0)
[2021-02-20 14:57] LABS: BASO % 1.6 % (0.0-1.0); EOS # 0.1 10^3/uL (0.0-0.5); LYMPH # 0.6 10^3/uL (1.5-5.0); MONO # 0.3 10^3/uL (0.0-0.8); NEUTROPHILS # 0.8 10^3/uL (1.5-8.5)
== END ==
LOC: M LABDRWAD 14:49
PROVIDERS: ATTEND Nurse Practitioner Family
DX: D64.9 Anemia, unspecified (principal)

== ENCOUNTER → 2021-02-27 | Outpatient (REF) | payer OTHER, MEDICAID ==
[2021-02-27 17:01] LABS: BASO # 0.1 10^3/uL (0.0-0.2); BASO % 2.4 % (0.0-1.0); EOS # 0.2 10^3/uL (0.0-0.5); EOS % 7.5 % (0.0-3.0); HEMATOCRIT 36.6 % (36.0-47.0); HEMOGLOBIN 12.5 g/dl (12.0-15.5); LYMPH # 0.7 10^3/uL (1.5-5.0); LYMPH % 34.4 % (24.0-44.0); MEAN CORPUSCULAR HEMOGLOBIN 34.2 pg (27.0-33.0); MEAN CORPUSCULAR HGB CONC 34.2 g/dl (32.0-36.5); MEAN CORPUSCULAR VOLUME 100.3 fl (80.0-96.0); MONO # 0.4 10^3/uL (0.0-0.8); NEUTROPHILS % 38.7 % (36.0-66.0); PLATELET COUNT, AUTOMATED 129 10^3/uL (150-450); RED BLOOD COUNT 3.65 10^6/uL (4.00-5.40); WHITE BLOOD COUNT 2.1 10^3/uL (4.0-10.0)
[2021-02-27 17:42] LABS: NEUTROPHILS # 0.8 10^3/uL (1.5-8.5)
== END ==
LOC: M LABDRWAD 16:32
PROVIDERS: ATTEND Nurse Practitioner Family
DX: D64.9 Anemia, unspecified (principal)

== ENCOUNTER → 2021-03-04 | Outpatient (CLI) | payer OTHER, MEDICAID ==
[2021-03-04 17:09] LABS: HEMATOCRIT 34.5 % (36.0-47.0); MEAN CORPUSCULAR HEMOGLOBIN 34.7 pg (27.0-33.0); MEAN CORPUSCULAR HGB CONC 34.8 g/dl (32.0-36.5); MEAN CORPUSCULAR VOLUME 99.7 fl (80.0-96.0); PLATELET COUNT, AUTOMATED 118 10^3/uL (150-450); RED BLOOD COUNT 3.46 10^6/uL (4.00-5.40); WHITE BLOOD COUNT 1.8 10^3/uL (4.0-10.0)
[2021-03-04 19:40] LABS: ATYPICAL LYMPH 10 % (0-5); BASOPHILS 4 % (0-1); EOSINOPHILS 5 % (0-3); LYMPHOCYTES 27 % (16-44); MONOCYTES 15 % (0-5); NEUTROPHILS 37 % (28-66)
[2021-03-04 19:41] LABS: PLATELET ESTIMATE DECREASED (NORMAL)
[2021-03-04 20:19] LABS: IMMUNOGLOBULIN A 13.7 MG/DL (70-400); IMMUNOGLOBULIN G 201 MG/DL (681-1648)
[2021-03-05 10:34] LABS: ALBUMIN % 73.3 % (55.8-66.1); ALPHA-1-GLOBULIN % 5.7 % (2.9-4.9); ALPHA-1-GLOBULINS 0.34 GM/DL (0.17-0.41); ALPHA-2-GLOBULINS 0.49 GM/DL (0.42-0.99); ALPHA-2-GLOBULINS % 8.1 % (7.1-11.8); BETA-2-GLOBULINS 0.19 GM/DL (0.19-0.55); BETA-2-GLOBULINS % 3.1 % (3.2-6.5); GAMMA GLOBULIN % 4.8 % (11.1-18.8); GAMMA GLOBULINS 0.29 GM/DL (0.65-1.58)
[2021-03-06 18:07] LABS: FREE KAPPA LIGHT CHAINS SERUM 6.8 mg/L (3.3-19.4); FREE LAMBDA LIGHT CHAINS SERUM 7.8 mg/L (5.7-26.3); KAPPA/LAMBDA RATIO SERUM 0.87 (0.26-1.65)
== END ==
LOC: M LABDRWAD 13:18
PROVIDERS: ATTEND Internal Medicine Hematology & Oncology
DX: C88.0 Waldenstrom macroglobulinemia (principal); D64.9 Anemia, unspecified

== ENCOUNTER → 2021-04-07 | Outpatient (REF) | payer OTHER, MEDICAID ==
[2021-04-07 12:55] LABS: BASO % 1.3 % (0.0-1.0); EOS # 0.2 10^3/uL (0.0-0.5); HEMATOCRIT 39.9 % (36.0-47.0); HEMOGLOBIN 13.7 g/dl (12.0-15.5); LYMPH # 0.6 10^3/uL (1.5-5.0); LYMPH % 20.1 % (24.0-44.0); MEAN CORPUSCULAR HEMOGLOBIN 33.7 pg (27.0-33.0); MEAN CORPUSCULAR HGB CONC 34.3 g/dl (32.0-36.5); MEAN CORPUSCULAR VOLUME 98.3 fl (80.0-96.0); MONO # 0.4 10^3/uL (0.0-0.8); MONO % 13.9 % (2.0-8.0); NEUTROPHILS # 1.8 10^3/uL (1.5-8.5); PLATELET COUNT, AUTOMATED 133 10^3/uL (150-450); RED BLOOD COUNT 4.06 10^6/uL (4.00-5.40)
[2021-04-07 13:32] LABS: ALT/SGPT 120 U/L (12-78); BLOOD UREA NITROGEN 17 MG/DL (7-18); CALCIUM LEVEL 9.5 MG/DL (8.8-10.2); CARBON DIOXIDE LEVEL 30 MEQ/L (21-32); CHLORIDE LEVEL 101 MEQ/L (98-107); CREATININE FOR GFR 0.92 MG/DL (0.55-1.30); GLOMERULAR FILTRATION RATE > 60.0 (>45); GLUCOSE, FASTING 78 MG/DL (70-100); POTASSIUM SERUM 4.1 MEQ/L (3.5-5.1); SODIUM LEVEL 138 MEQ/L (136-145)
[2021-04-07 13:33] LABS: ALBUMIN 4.2 GM/DL (3.2-5.2); BILIRUBIN,TOTAL 0.6 MG/DL (0.2-1.0); IMMUNOGLOBULIN A 14.5 MG/DL (70-400); IMMUNOGLOBULIN G 223 MG/DL (681-1648); TOTAL PROTEIN 6.5 GM/DL (6.4-8.2)
== END ==
LOC: M LAB REF 12:26
PROVIDERS: ATTEND Internal Medicine Hematology & Oncology
DX: C50.911 Malignant neoplasm of unspecified site of right female breast (principal); Z17.0 Estrogen receptor positive status [ER+]

== ENCOUNTER → 2021-04-24 | Outpatient (CLI) | payer OTHER, MEDICAID | LOC: M WHC 10:23 | PROVIDERS: ATTEND Internal Medicine Hematology & Oncology | DX: C50.911 Malignant neoplasm of unspecified site of right female breast (principal); Z17.0 Estrogen receptor positive status [ER+] ==

== ENCOUNTER → 2021-04-29 | Outpatient (REF) | payer OTHER, MEDICAID ==
[2021-04-29 18:01] LABS: BASO % 1.1 % (0.0-1.0); EOS # 0.2 10^3/uL (0.0-0.5); EOS % 4.3 % (0.0-3.0); HEMATOCRIT 34.6 % (36.0-47.0); HEMOGLOBIN 11.7 g/dl (12.0-15.5); LYMPH # 0.6 10^3/uL (1.5-5.0); LYMPH % 16.2 % (24.0-44.0); MEAN CORPUSCULAR HEMOGLOBIN 33.4 pg (27.0-33.0); MEAN CORPUSCULAR HGB CONC 33.8 g/dl (32.0-36.5); MEAN CORPUSCULAR VOLUME 98.9 fl (80.0-96.0); MONO # 0.4 10^3/uL (0.0-0.8); MONO % 11.7 % (2.0-8.0); NEUTROPHILS # 2.3 10^3/uL (1.5-8.5); NEUTROPHILS % 66.1 % (36.0-66.0); PLATELET COUNT, AUTOMATED 139 10^3/uL (150-450); WHITE BLOOD COUNT 3.5 10^3/uL (4.0-10.0)
[2021-04-29 18:37] LABS: ALBUMIN 3.8 GM/DL (3.2-5.2); BILIRUBIN,TOTAL 0.6 MG/DL (0.2-1.0); CALCIUM LEVEL 9.1 MG/DL (8.8-10.2); CREATININE FOR GFR 1.09 MG/DL (0.55-1.30); GLOMERULAR FILTRATION RATE 53.1 (>45); POTASSIUM SERUM 4.3 MEQ/L (3.5-5.1); TOTAL PROTEIN 5.8 GM/DL (6.4-8.2)
== END ==
LOC: M LABDRWAD 16:45
PROVIDERS: ATTEND Internal Medicine Hematology & Oncology
DX: C50.911 Malignant neoplasm of unspecified site of right female breast (principal); Z17.0 Estrogen receptor positive status [ER+]

== ENCOUNTER → 2021-06-04 | Outpatient (REF) | payer OTHER, MEDICAID ==
[2021-06-04 13:25] LABS: EOS # 0.1 10^3/uL (0.0-0.5); EOS % 1.7 % (0.0-3.0); HEMATOCRIT 37.7 % (36.0-47.0); HEMOGLOBIN 12.7 g/dl (12.0-15.5); LYMPH # 0.3 10^3/uL (1.5-5.0); LYMPH % 11.3 % (24.0-44.0); MEAN CORPUSCULAR HEMOGLOBIN 33.2 pg (27.0-33.0); MEAN CORPUSCULAR HGB CONC 33.7 g/dl (32.0-36.5); MEAN CORPUSCULAR VOLUME 98.7 fl (80.0-96.0); MONO # 0.2 10^3/uL (0.0-0.8); MONO % 6.6 % (2.0-8.0); NEUTROPHILS # 2.4 10^3/uL (1.5-8.5); NEUTROPHILS % 78.4 % (36.0-66.0); PLATELET COUNT, AUTOMATED 151 10^3/uL (150-450); RED BLOOD COUNT 3.82 10^6/uL (4.00-5.40)
[2021-06-04 15:02] LABS: ALBUMIN 4.3 GM/DL (3.2-5.2); ALT/SGPT 68 U/L (12-78); BILIRUBIN,TOTAL 0.8 MG/DL (0.2-1.0); BLOOD UREA NITROGEN 16 MG/DL (7-18); CALCIUM LEVEL 9.3 MG/DL (8.8-10.2); CARBON DIOXIDE LEVEL 30 MEQ/L (21-32); CHLORIDE LEVEL 105 MEQ/L (98-107); CREATININE FOR GFR 0.85 MG/DL (0.55-1.30); GLOMERULAR FILTRATION RATE > 60.0 (>45); GLUCOSE, FASTING 100 MG/DL (70-100); IMMUNOGLOBULIN A 12.4 MG/DL (70-400); IMMUNOGLOBULIN G 207 MG/DL (681-1648); POTASSIUM SERUM 3.6 MEQ/L (3.5-5.1); SODIUM LEVEL 142 MEQ/L (136-145); TOTAL PROTEIN 6.5 GM/DL (6.4-8.2)
== END ==
LOC: M LABDRWAD 12:16
PROVIDERS: ATTEND Internal Medicine Hematology & Oncology
DX: C50.911 Malignant neoplasm of unspecified site of right female breast (principal); Z17.0 Estrogen receptor positive status [ER+]

== ENCOUNTER → 2021-06-06 | Outpatient (CLI) | payer OTHER, MEDICAID | LOC: M WUC 11:45 | PROVIDERS: ATTEND Physician Assistant | DX: J01.00 Acute maxillary sinusitis, unspecified (principal); J30.89 Other allergic rhinitis ==

== ENCOUNTER → 2021-06-24 | Outpatient (CLI) | payer OTHER, MEDICAID ==
[~2021-06-24] MED LIST changes: +E-Z-GAS II EFFERVESCENT PACKET (SODIUM BICARB./CITRIC ACID/SIMETHICONE) As Ordered ONE; +E-Z-HD 98% w/w 340GM SUSP BTL As Ordered ONE; +E-Z-PAQUE 96% w/w SUSP 176GM BTL As Ordered ONE
== END ==
LOC: M RAD 09:09
PROVIDERS: ATTEND Otolaryngology
DX: K21.9 Gastro-esophageal reflux disease without esophagitis (principal); M25.78 Osteophyte, vertebrae

== ENCOUNTER → 2021-07-10 | Outpatient (REF) | payer OTHER, MEDICAID ==
[~2021-07-10] MED LIST changes: -E-Z-GAS II EFFERVESCENT PACKET (SODIUM BICARB./CITRIC ACID/SIMETHICONE) As Ordered ONE; -E-Z-HD 98% w/w 340GM SUSP BTL As Ordered ONE; -E-Z-PAQUE 96% w/w SUSP 176GM BTL As Ordered ONE
[2021-07-10 16:39] LABS: BASO # 0.1 10^3/uL (0.0-0.2); BASO % 2.3 % (0.0-1.0); EOS # 0.3 10^3/uL (0.0-0.5); EOS % 12.1 % (0.0-3.0); HEMATOCRIT 37.6 % (36.0-47.0); LYMPH # 0.7 10^3/uL (1.5-5.0); LYMPH % 28.1 % (24.0-44.0); MEAN CORPUSCULAR HEMOGLOBIN 33.7 pg (27.0-33.0); MEAN CORPUSCULAR HGB CONC 34.6 g/dl (32.0-36.5); MEAN CORPUSCULAR VOLUME 97.4 fl (80.0-96.0); MONO # 0.3 10^3/uL (0.0-0.8); MONO % 11.3 % (2.0-8.0); NEUTROPHILS # 1.2 10^3/uL (1.5-8.5); NEUTROPHILS % 45.8 % (36.0-66.0); PLATELET COUNT, AUTOMATED 118 10^3/uL (150-450); RED BLOOD COUNT 3.86 10^6/uL (4.00-5.40); WHITE BLOOD COUNT 2.6 10^3/uL (4.0-10.0)
[2021-07-10 17:47] LABS: BLOOD UREA NITROGEN 19 MG/DL (7-18); CREATININE FOR GFR 0.91 MG/DL (0.55-1.30); GLUCOSE, FASTING 87 MG/DL (70-100)
[2021-07-10 17:48] LABS: ALBUMIN 4.2 GM/DL (3.2-5.2); ALT/SGPT 87 U/L (12-78); BILIRUBIN,TOTAL 0.9 MG/DL (0.2-1.0); CALCIUM LEVEL 9.5 MG/DL (8.8-10.2); CARBON DIOXIDE LEVEL 32 MEQ/L (21-32); CHLORIDE LEVEL 103 MEQ/L (98-107); GLOMERULAR FILTRATION RATE > 60.0 (>45); IMMUNOGLOBULIN A 12.7 MG/DL (70-400); IMMUNOGLOBULIN G 203 MG/DL (681-1648); IMMUNOGLOBULIN M 74.2 MG/DL (40-230); POTASSIUM SERUM 4.1 MEQ/L (3.5-5.1); SODIUM LEVEL 138 MEQ/L (136-145); TOTAL PROTEIN 6.4 GM/DL (6.4-8.2)
== END ==
LOC: M LABDRWAD 15:58
PROVIDERS: ATTEND Internal Medicine Hematology & Oncology
DX: C50.911 Malignant neoplasm of unspecified site of right female breast (principal); Z17.0 Estrogen receptor positive status [ER+]

== ENCOUNTER → 2021-08-27 | Outpatient (REF) | payer MEDICARE, MEDICAID, OTHER ==
[2021-08-27 13:15] LABS: ALBUMIN 4.3 GM/DL (3.2-5.2); ALT/SGPT 70 U/L (12-78); BILIRUBIN,TOTAL 0.9 MG/DL (0.2-1.0); BLOOD UREA NITROGEN 15 MG/DL (7-18); CALCIUM LEVEL 9.4 MG/DL (8.8-10.2); CARBON DIOXIDE LEVEL 33 MEQ/L (21-32); CHLORIDE LEVEL 106 MEQ/L (98-107); CHOLESTEROL LEVEL 194 MG/DL (<200); CREATININE FOR GFR 0.87 MG/DL (0.55-1.30); FOLATE 20.9 NG/ML; FREE T4 1.08 NG/DL (0.76-1.46); GLOMERULAR FILTRATION RATE > 60.0 (>45); GLUCOSE, FASTING 91 MG/DL (70-100); HDL CHOLESTEROL 53 MG/DL (>40); LDL CHOLESTEROL 117 MG/DL (<100); NON-HDL-C 141 MG/DL; POTASSIUM SERUM 4.3 MEQ/L (3.5-5.1); SODIUM LEVEL 141 MEQ/L (136-145); TOTAL 25(OH) VITAMIN D 20.4 NG/ML (30.0-100.0); TOTAL PROTEIN 6.2 GM/DL (6.4-8.2); TRIGLYCERIDES LEVEL 120 MG/DL (<150)
[2021-08-27 15:57] LABS: HEMOGLOBIN A1c 4.5 %
== END ==
LOC: M SFHCADAM 08:54
PROVIDERS: ATTEND Physician Assistant
DX: M25.512 Pain in left shoulder (principal); R74.8 Abnormal levels of other serum enzymes; Z13.220 Encounter for screening for lipoid disorders; Z13.1 Encounter for screening for diabetes mellitus; G89.29 Other chronic pain; D75.89 Other specified diseases of blood and blood-forming organs; D61.818 Other pancytopenia; E07.9 Disorder of thyroid, unspecified

== ENCOUNTER → 2021-08-30 | Outpatient (CLI) | payer OTHER, MEDICAID ==
[~2021-08-30] MED LIST changes: +NEXI20CA PO
== END ==
LOC: M LABSMTC 10:17
PROVIDERS: ATTEND Anesthesiology
DX: Z01.812 Encounter for preprocedural laboratory examination (principal); Z20.822 Contact with and (suspected) exposure to COVID-19

== ENCOUNTER 2021-09-04 12:33 | Day surgery (SDC) | payer OTHER, MEDICAID ==
[~2021-09-04] VITALS: Ht 160 cm; Wt 60.7 kg
[~2021-09-04 12:33] MED LIST changes: +NS 1,000 ML IV ONE
[2021-09-04] MEDS ORDERED: fentaNYL 100 MCG/2 ML INJECTION As Ordered ONE (14:18)
[2021-09-04] MEDS ORDERED: propofoL 200 MG/20 ML VIAL As Ordered ONE ×2 (14:21→14:41)
[2021-09-04 15:34] VITALS: BP 124/61
== END 2021-09-04 15:36 | disposition home or self-care (01) ==
LOC: M OPP 12:33
PROVIDERS: ATTEND Internal Medicine Gastroenterology
DX: Z12.11 Encounter for screening for malignant neoplasm of colon (principal); Z86.010 Personal history of colon polyps; Z80.0 Family history of malignant neoplasm of digestive organs; D12.0 Benign neoplasm of cecum; D12.3 Benign neoplasm of transverse colon; D12.5 Benign neoplasm of sigmoid colon; K57.30 Diverticulosis of large intestine without perforation or abscess without bleeding; K64.8 Other hemorrhoids; K31.7 Polyp of stomach and duodenum; R14.2 Eructation; R10.13 Epigastric pain; R13.10 Dysphagia, unspecified; D64.9 Anemia, unspecified; Z79.899 Other long term (current) drug therapy; Z88.8 Allergy status to other drugs, medicaments and biological substances; Z85.3 Personal history of malignant neoplasm of breast; C85.90 Non-Hodgkin lymphoma, unspecified, unspecified site; C88.0 Waldenstrom macroglobulinemia; Z92.21 Personal history of antineoplastic chemotherapy
CPT/HCPCS: 43251; 45385; 88305; J3010

== ENCOUNTER → 2021-10-07 | Outpatient (CLI) | payer OTHER, MEDICAID ==
[~2021-10-07] MED LIST changes: -NS 1,000 ML IV ONE
[2021-10-07 17:10] LABS: BASO # 0.1 10^3/uL (0.0-0.2); BASO % 1.3 % (0.0-1.0); EOS # 0.1 10^3/uL (0.0-0.5); EOS % 3.1 % (0.0-3.0); HEMOGLOBIN 11.8 g/dl (12.0-15.5); LYMPH # 0.8 10^3/uL (1.5-5.0); LYMPH % 20.1 % (24.0-44.0); MEAN CORPUSCULAR HEMOGLOBIN 33.2 pg (27.0-33.0); MEAN CORPUSCULAR HGB CONC 33.7 g/dl (32.0-36.5); MEAN CORPUSCULAR VOLUME 98.6 fl (80.0-96.0); MONO # 0.4 10^3/uL (0.0-0.8); MONO % 10.3 % (2.0-8.0); NEUTROPHILS # 2.5 10^3/uL (1.5-8.5); NEUTROPHILS % 64.9 % (36.0-66.0); PLATELET COUNT, AUTOMATED 106 10^3/uL (150-450); RED BLOOD COUNT 3.55 10^6/uL (4.00-5.40); WHITE BLOOD COUNT 3.9 10^3/uL (4.0-10.0)
[2021-10-07 17:49] LABS: ALBUMIN 4.1 GM/DL (3.2-5.2); BILIRUBIN,TOTAL 0.6 MG/DL (0.2-1.0); CALCIUM LEVEL 9.7 MG/DL (8.8-10.2); CREATININE FOR GFR 1.02 MG/DL (0.55-1.30); GLOMERULAR FILTRATION RATE 57.4 (>45); IMMUNOGLOBULIN A 13.4 MG/DL (70-400); IMMUNOGLOBULIN M 74.1 MG/DL (40-230); POTASSIUM SERUM 4.3 MEQ/L (3.5-5.1); TOTAL PROTEIN 6.1 GM/DL (6.4-8.2)
== END ==
LOC: M ADAMS 13:29
PROVIDERS: ATTEND Internal Medicine Hematology & Oncology
DX: C88.0 Waldenstrom macroglobulinemia (principal)

== ENCOUNTER → 2021-11-28 | Outpatient (CLI) | payer OTHER, MEDICAID ==
[2021-11-28 17:10] LABS: BASO % 1.2 % (0.0-1.0); EOS # 0.1 10^3/uL (0.0-0.5); EOS % 2.3 % (0.0-3.0); HEMATOCRIT 36.5 % (36.0-47.0); HEMOGLOBIN 12.1 g/dl (12.0-15.5); LYMPH # 0.6 10^3/uL (1.5-5.0); LYMPH % 18.4 % (24.0-44.0); MEAN CORPUSCULAR HEMOGLOBIN 32.3 pg (27.0-33.0); MEAN CORPUSCULAR HGB CONC 33.2 g/dl (32.0-36.5); MEAN CORPUSCULAR VOLUME 97.3 fl (80.0-96.0); MONO # 0.4 10^3/uL (0.0-0.8); NEUTROPHILS # 2.3 10^3/uL (1.5-8.5); NEUTROPHILS % 66.5 % (36.0-66.0); RED BLOOD COUNT 3.75 10^6/uL (4.00-5.40); WHITE BLOOD COUNT 3.5 10^3/uL (4.0-10.0)
[2021-11-28 18:33] LABS: ALBUMIN 4.1 GM/DL (3.2-5.2); ALT/SGPT 68 U/L (12-78); BILIRUBIN,TOTAL 0.8 MG/DL (0.2-1.0); BLOOD UREA NITROGEN 18 MG/DL (7-18); CALCIUM LEVEL 9.1 MG/DL (8.8-10.2); CARBON DIOXIDE LEVEL 28 MEQ/L (21-32); CHLORIDE LEVEL 105 MEQ/L (98-107); CREATININE FOR GFR 0.98 MG/DL (0.55-1.30); GLOMERULAR FILTRATION RATE > 60.0 (>45); GLUCOSE, FASTING 102 MG/DL (70-100); IMMUNOGLOBULIN A 12.6 MG/DL (70-400); IMMUNOGLOBULIN G 199 MG/DL (681-1648); IMMUNOGLOBULIN M 65.9 MG/DL (40-230); POTASSIUM SERUM 4.1 MEQ/L (3.5-5.1); SODIUM LEVEL 139 MEQ/L (136-145); TOTAL PROTEIN 6.2 GM/DL (6.4-8.2)
[2021-11-28 18:53] LABS: PLATELET COUNT, AUTOMATED 98 10^3/uL (150-450)
== END ==
LOC: M ADAMS 11:56
PROVIDERS: ATTEND Internal Medicine Hematology & Oncology
DX: C88.0 Waldenstrom macroglobulinemia (principal)

== ENCOUNTER → 2021-12-24 | Outpatient (REF) | payer OTHER, MEDICAID, MEDICARE | LOC: M SFHCADAM 12:40 | PROVIDERS: ATTEND Physician Assistant | DX: Z12.4 Encounter for screening for malignant neoplasm of cervix (principal); N95.2 Postmenopausal atrophic vaginitis | CPT/HCPCS: 87624; G0123 ==

== ENCOUNTER → 2022-02-18 | Outpatient (CLI) | payer OTHER, MEDICAID, MEDICARE ==
[2022-02-18 17:58] LABS: BASO % 0.7 % (0.0-1.0); EOS # 0.1 10^3/uL (0.0-0.5); EOS % 2.8 % (0.0-3.0); HEMATOCRIT 37.3 % (36.0-47.0); HEMOGLOBIN 12.6 g/dl (12.0-15.5); LYMPH # 0.8 10^3/uL (1.5-5.0); LYMPH % 19.6 % (24.0-44.0); MEAN CORPUSCULAR HEMOGLOBIN 33.5 pg (27.0-33.0); MEAN CORPUSCULAR HGB CONC 33.8 g/dl (32.0-36.5); MEAN CORPUSCULAR VOLUME 99.2 fl (80.0-96.0); MONO # 0.5 10^3/uL (0.0-0.8); NEUTROPHILS # 2.7 10^3/uL (1.5-8.5); NEUTROPHILS % 64.4 % (36.0-66.0); PLATELET COUNT, AUTOMATED 103 10^3/uL (150-450); RED BLOOD COUNT 3.76 10^6/uL (4.00-5.40); WHITE BLOOD COUNT 4.2 10^3/uL (4.0-10.0)
[2022-02-18 18:58] LABS: ERYTHROCYTE SEDIMENTATION RATE 5 mm/hr (0-30)
[2022-02-18 20:23] LABS: ALBUMIN 4.5 GM/DL (3.2-5.2); ALT/SGPT 82 U/L (12-78); BILIRUBIN,TOTAL 0.8 MG/DL (0.2-1.0); BLOOD UREA NITROGEN 17 MG/DL (7-18); CALCIUM LEVEL 9.4 MG/DL (8.8-10.2); CARBON DIOXIDE LEVEL 29 MEQ/L (21-32); CHLORIDE LEVEL 100 MEQ/L (98-107); CREATININE FOR GFR 0.85 MG/DL (0.55-1.30); GLOMERULAR FILTRATION RATE > 60.0 (>45); GLUCOSE, FASTING 112 MG/DL (70-100); IMMUNOGLOBULIN A 15.9 MG/DL (70-400); IMMUNOGLOBULIN G 247 MG/DL (681-1648); IMMUNOGLOBULIN M 69.9 MG/DL (40-230); LDH LACTATE DEHYDROGENASE 190 U/L (84-246); POTASSIUM SERUM 4.1 MEQ/L (3.5-5.1); SODIUM LEVEL 136 MEQ/L (136-145); TOTAL 25(OH) VITAMIN D 29.8 NG/ML (30.0-100.0); TOTAL PROTEIN 6.7 GM/DL (6.4-8.2); VITAMIN B12 LEVEL 856 PG/ML (247-911)
[2022-02-20 11:48] LABS: IMMUNOTYPING SERUM IGM ABNORMAL (NORMAL); IMMUNOTYPING SERUM KAPPA ABNORMAL (NORMAL)
== END ==
LOC: M LABDRWAD 14:19
DX: C88.0 Waldenstrom macroglobulinemia (principal); Z79.899 Other long term (current) drug therapy

== ENCOUNTER → 2022-06-03 | Outpatient (REF) | payer OTHER, MEDICAID, MEDICARE ==
[2022-06-03 16:44] LABS: ALBUMIN 4.2 G/DL (3.2-5.2); ALKALINE PHOSPHATASE 116 U/L (46-116); ALT/SGPT 56 U/L (7.0-40); AST/SGOT 27 U/L (<34); BILIRUBIN,TOTAL 0.7 MG/DL (0.3-1.2); BLOOD UREA NITROGEN 17 MG/DL (9-23); CALCIUM LEVEL 9.1 MG/DL (8.3-10.6); CARBON DIOXIDE LEVEL 30 MMOL/L (20-31); CHLORIDE LEVEL 98 MMOL/L (98-107); CREATININE FOR GFR 0.88 MG/DL (0.55-1.30); GLOMERULAR FILTRATION RATE > 60.0 (>45); GLUCOSE, FASTING 104 MG/DL (74-106); IMMUNOGLOBULIN G 188 MG/DL (650-1600); IMMUNOGLOBULIN M 47.2 MG/DL (50-300); POTASSIUM SERUM 3.9 MMOL/L (3.5-5.1); SODIUM LEVEL 135 MMOL/L (136-145); TOTAL PROTEIN 6.1 G/DL (5.7-8.2)
[2022-06-03 16:55] LABS: IMMUNOGLOBULIN A < 33.0 MG/DL (40-350)
== END ==
LOC: M LABDRWAD 15:52
PROVIDERS: ATTEND Internal Medicine Hematology & Oncology
DX: C88.0 Waldenstrom macroglobulinemia (principal)

== ENCOUNTER → 2022-10-06 | Outpatient (CLI) | payer OTHER, MEDICAID ==
[2022-10-06 14:49] LABS: BASO # 0.1 10^3/uL (0.0-0.2); BASO % 1.3 % (0.0-1.0); EOS # 0.1 10^3/uL (0.0-0.5); HEMATOCRIT 35.2 % (36.0-47.0); HEMOGLOBIN 12.3 g/dl (12.0-15.5); LYMPH # 0.8 10^3/uL (1.5-5.0); LYMPH % 19.8 % (24.0-44.0); MEAN CORPUSCULAR HEMOGLOBIN 33.1 pg (27.0-33.0); MEAN CORPUSCULAR HGB CONC 34.9 g/dl (32.0-36.5); MEAN CORPUSCULAR VOLUME 94.6 fl (80.0-96.0); MONO # 0.4 10^3/uL (0.0-0.8); NEUTROPHILS # 2.7 10^3/uL (1.5-8.5); NEUTROPHILS % 66.4 % (36.0-66.0); RED BLOOD COUNT 3.72 10^6/uL (4.00-5.40)
[2022-10-06 14:51] LABS: ALBUMIN 4.3 G/DL (3.2-5.2); ALKALINE PHOSPHATASE 92 U/L (46-116); ALT/SGPT 44 U/L (7.0-40); AST/SGOT 23 U/L (<34); BILIRUBIN,TOTAL 0.9 MG/DL (0.3-1.2); BLOOD UREA NITROGEN 14 MG/DL (9-23); CALCIUM LEVEL 8.5 MG/DL (8.3-10.6); CARBON DIOXIDE LEVEL 29 MMOL/L (20-31); CHLORIDE LEVEL 101 MMOL/L (98-107); CREATININE FOR GFR 0.88 MG/DL (0.55-1.30); GLOMERULAR FILTRATION RATE > 60.0 (>45); GLUCOSE, FASTING 88 MG/DL (74-106); SODIUM LEVEL 136 MMOL/L (136-145); TOTAL PROTEIN 5.9 G/DL (5.7-8.2)
[2022-10-06 15:05] LABS: IMMUNOGLOBULIN A < 33.0 MG/DL (40-350)
[2022-10-06 15:25] LABS: PLATELET COUNT, AUTOMATED 89 10^3/uL (150-450)
[2022-10-07 18:07] LABS: FREE LAMBDA LIGHT CHAINS SERUM 6.7 mg/L (5.7-26.3)
== END ==
LOC: M LAB 13:22
PROVIDERS: ATTEND Nurse Practitioner Family
DX: C88.0 Waldenstrom macroglobulinemia (principal)

== ENCOUNTER → 2022-11-13 | Outpatient (CLI) | payer OTHER, MEDICAID ==
[2022-11-13 13:11] LABS: BASO % 0.9 % (0.0-1.0); EOS # 0.1 10^3/uL (0.0-0.5); EOS % 2.5 % (0.0-3.0); HEMATOCRIT 34.9 % (36.0-47.0); HEMOGLOBIN 11.9 g/dl (12.0-15.5); LYMPH # 0.6 10^3/uL (1.5-5.0); LYMPH % 18.2 % (24.0-44.0); MEAN CORPUSCULAR HEMOGLOBIN 32.9 pg (27.0-33.0); MEAN CORPUSCULAR HGB CONC 34.1 g/dl (32.0-36.5); MEAN CORPUSCULAR VOLUME 96.4 fl (80.0-96.0); MONO # 0.3 10^3/uL (0.0-0.8); MONO % 10.7 % (2.0-8.0); NEUTROPHILS # 2.2 10^3/uL (1.5-8.5); NEUTROPHILS % 67.4 % (36.0-66.0); RED BLOOD COUNT 3.62 10^6/uL (4.00-5.40); WHITE BLOOD COUNT 3.2 10^3/uL (4.0-10.0)
[2022-11-13 13:13] LABS: PLATELET COUNT, AUTOMATED 83 10^3/uL (150-450)
[2022-11-13 13:35] LABS: IMMUNOGLOBULIN G 172 MG/DL (650-1600); IMMUNOGLOBULIN M 47.6 MG/DL (50-300)
[2022-11-13 13:57] LABS: IMMUNOGLOBULIN A < 33.0 MG/DL (40-350)
== END ==
LOC: M LAB 12:28
PROVIDERS: ATTEND Internal Medicine
DX: C88.0 Waldenstrom macroglobulinemia (principal); C50.911 Malignant neoplasm of unspecified site of right female breast; D69.6 Thrombocytopenia, unspecified; Z17.0 Estrogen receptor positive status [ER+]

== ENCOUNTER → 2022-11-18 | Outpatient (REF) | payer OTHER, MEDICAID ==
[2022-11-18 13:24] LABS: BASO % 0.7 % (0.0-1.0); EOS # 0.1 10^3/uL (0.0-0.5); EOS % 3.3 % (0.0-3.0); HEMATOCRIT 34.4 % (36.0-47.0); HEMOGLOBIN 11.6 g/dl (12.0-15.5); LYMPH # 0.7 10^3/uL (1.5-5.0); LYMPH % 15.5 % (24.0-44.0); MEAN CORPUSCULAR HEMOGLOBIN 32.3 pg (27.0-33.0); MEAN CORPUSCULAR HGB CONC 33.7 g/dl (32.0-36.5); MEAN CORPUSCULAR VOLUME 95.8 fl (80.0-96.0); MONO # 0.5 10^3/uL (0.0-0.8); MONO % 11.5 % (2.0-8.0); NEUTROPHILS # 2.9 10^3/uL (1.5-8.5); NEUTROPHILS % 68.8 % (36.0-66.0); RED BLOOD COUNT 3.59 10^6/uL (4.00-5.40); WHITE BLOOD COUNT 4.3 10^3/uL (4.0-10.0)
[2022-11-18 13:36] LABS: PLATELET COUNT, AUTOMATED 86 10^3/uL (150-450)
== END ==
LOC: M LABDRWAD 12:32
PROVIDERS: ATTEND Registered Nurse
DX: C88.0 Waldenstrom macroglobulinemia (principal)

== ENCOUNTER → 2023-02-09 | Outpatient (CLI) | payer MEDICARE, MEDICAID, OTHER | LOC: M ADAMS 11:53 | PROVIDERS: ATTEND Physician Assistant | DX: M25.561 Pain in right knee (principal) ==

== ENCOUNTER → 2023-05-25 | Outpatient (REF) | payer OTHER, MEDICAID ==
[2023-05-25 14:24] LABS: BASO % 0.5 % (0.0-1.0); EOS # 0.1 10^3/uL (0.0-0.5); EOS % 3.6 % (0.0-3.0); HEMATOCRIT 37.5 % (36.0-47.0); HEMOGLOBIN 12.3 g/dl (12.0-15.5); LYMPH # 0.8 10^3/uL (1.5-5.0); LYMPH % 20.6 % (24.0-44.0); MEAN CORPUSCULAR HEMOGLOBIN 31.5 pg (27.0-33.0); MEAN CORPUSCULAR HGB CONC 32.8 g/dl (32.0-36.5); MEAN CORPUSCULAR VOLUME 96.2 fl (80.0-96.0); MONO # 0.4 10^3/uL (0.0-0.8); MONO % 10.2 % (2.0-8.0); NEUTROPHILS # 2.5 10^3/uL (1.5-8.5); NEUTROPHILS % 65.1 % (36.0-66.0); WHITE BLOOD COUNT 3.8 10^3/uL (4.0-10.0)
[2023-05-25 14:28] LABS: PLATELET COUNT, AUTOMATED 79 10^3/uL (150-450)
== END ==
LOC: M LABDRWAD 12:50
PROVIDERS: ATTEND Registered Nurse
DX: C88.0 Waldenstrom macroglobulinemia (principal)

== ENCOUNTER → 2023-08-10 | Outpatient (CLI) | payer MEDICARE, MEDICAID, OTHER | LOC: M ADAMS 10:17 | PROVIDERS: ATTEND Physician Assistant | DX: M19.039 Primary osteoarthritis, unspecified wrist (principal); R22.31 Localized swelling, mass and lump, right upper limb ==

== ENCOUNTER → 2023-08-10 | Outpatient (REF) | payer MEDICARE, MEDICAID, OTHER ==
[2023-08-10 14:26] LABS: URIC ACID 4.2 MG/DL (3.1-7.8)
[2023-08-10 14:28] LABS: C REACTIVE PROTEIN QUANTITATIV < 0.40 MG/DL (<1.0)
[2023-08-10 14:31] LABS: RHEUMATOID FACTOR QUANT < 3.5 IU/ML (<14)
[2023-08-12 00:11] LABS: ANA (HEP2) Negative (.); CYCLIC CITRULLINATED PEPTIDE 4 units (0-19)
== END ==
LOC: M SFHCADAM 10:14
PROVIDERS: ATTEND Physician Assistant
DX: M19.039 Primary osteoarthritis, unspecified wrist (principal)

== ENCOUNTER → 2023-11-30 | Outpatient (REF) | payer MEDICARE, MEDICAID, OTHER ==
[2023-11-30 18:03] LABS: LDH LACTATE DEHYDROGENASE 217 U/L (120-246)
[2023-11-30 18:04] LABS: ALBUMIN 4.3 G/DL (3.2-5.2); ALKALINE PHOSPHATASE 107 U/L (46-116); ALT/SGPT 66 U/L (7.0-40); AST/SGOT 34 U/L (<34); BILIRUBIN,TOTAL 0.7 MG/DL (0.3-1.2); BLOOD UREA NITROGEN 18 MG/DL (9-23); CALCIUM LEVEL 9.4 MG/DL (8.3-10.6); CARBON DIOXIDE LEVEL 29 MMOL/L (20-31); CHLORIDE LEVEL 105 MMOL/L (98-107); CREATININE FOR GFR 0.93 MG/DL (0.55-1.30); GLOMERULAR FILTRATION RATE > 60.0 (>39); GLUCOSE, FASTING 84 MG/DL (74-106); IRON (FE) 118 UG/DL (50-170); PERCENT SATURATION 42.3 % (13.2-45.0); POTASSIUM SERUM 4.4 MMOL/L (3.5-5.1); SODIUM LEVEL 139 MMOL/L (136-145); TOTAL IRON BINDING CAPACITY 279 UG/DL (250-425); TOTAL PROTEIN 6.1 G/DL (5.7-8.2)
[2023-11-30 18:07] LABS: BASO % 0.8 % (0.0-1.0); EOS # 0.1 10^3/uL (0.0-0.5); EOS % 1.3 % (0.0-3.0); HEMATOCRIT 37.8 % (36.0-47.0); HEMOGLOBIN 12.4 g/dl (12.0-15.5); LYMPH # 0.8 10^3/uL (1.5-5.0); LYMPH % 19.4 % (24.0-44.0); MEAN CORPUSCULAR HEMOGLOBIN 31.4 pg (27.0-33.0); MEAN CORPUSCULAR HGB CONC 32.8 g/dl (32.0-36.5); MEAN CORPUSCULAR VOLUME 95.7 fl (80.0-96.0); MONO # 0.3 10^3/uL (0.0-0.8); MONO % 8.3 % (2.0-8.0); NEUTROPHILS # 2.8 10^3/uL (1.5-8.5); NEUTROPHILS % 69.9 % (36.0-66.0); RED BLOOD COUNT 3.95 10^6/uL (4.00-5.40)
[2023-11-30 18:09] LABS: IMMUNOGLOBULIN G 218 MG/DL (650-1600); TOTAL 25(OH) VITAMIN D 33.7 NG/ML (20.0-100.0); VITAMIN B12 LEVEL 987 PG/ML (211-911)
[2023-11-30 18:11] LABS: PLATELET COUNT, AUTOMATED 73 10^3/uL (150-450)
[2023-11-30 19:31] LABS: FOLATE 12.2 NG/ML (>5.4); IMMUNOGLOBULIN A < 33.0 MG/DL (40-350)
[2023-12-02 06:58] LABS: T P ELECTROPHORESIS SO 6.2 g/dL (6.1-8.1)
[2023-12-02 14:22] LABS: FREE LAMBDA LIGHT CHAINS SERUM 6.9 mg/L (5.7-26.3); KAPPA/LAMBDA RATIO SERUM 0.72 (0.26-1.65)
[2023-12-02 15:57] LABS: PROTEIN CREATININE RATIO 250 mg/g creat (24-184); UPEP CREATININE 16 mg/dL (20-275); UPEP TOTAL PROTEIN 4 mg/dL (5-24)
== END ==
LOC: M LABDRWAD 16:57
PROVIDERS: ATTEND Nurse Practitioner Family
DX: E55.9 Vitamin D deficiency, unspecified (principal); C88.0 Waldenstrom macroglobulinemia; D50.9 Iron deficiency anemia, unspecified

== ENCOUNTER → 2023-12-16 | Outpatient (CLI) | payer OTHER, MEDICAID | LOC: M WHC 11:01 | PROVIDERS: ATTEND Internal Medicine | DX: Z13.820 Encounter for screening for osteoporosis (principal); M85.851 Other specified disorders of bone density and structure, right thigh; M85.852 Other specified disorders of bone density and structure, left thigh; C88.0 Waldenstrom macroglobulinemia; C50.911 Malignant neoplasm of unspecified site of right female breast ==

== ENCOUNTER → 2024-03-14 | Outpatient (REF) | payer MEDICARE, MEDICAID, OTHER ==
[~2024-03-14] MED LIST changes: +LOSA25TA13; +LOSA25TA13 PO; +THERTAB52 PO
[2024-03-14 18:55] LABS: HEMATOCRIT 27.7 % (36.0-47.0); HEMOGLOBIN 8.9 g/dl (12.0-15.5); MEAN CORPUSCULAR HEMOGLOBIN 33.6 pg (27.0-33.0); MEAN CORPUSCULAR HGB CONC 32.1 g/dl (32.0-36.5); MEAN CORPUSCULAR VOLUME 104.5 fl (80.0-96.0); RED BLOOD COUNT 2.65 10^6/uL (4.00-5.40); WHITE BLOOD COUNT 1.1 10^3/uL (4.0-10.0)
[2024-03-14 19:22] LABS: ALKALINE PHOSPHATASE 96 U/L (35-104); ALT/SGPT 45 U/L (7.0-40); AST/SGOT 16 U/L (<34); BILIRUBIN,TOTAL 0.7 MG/DL (0.3-1.2); BLOOD UREA NITROGEN 20 MG/DL (9-23); CALCIUM LEVEL 9.6 MG/DL (8.3-10.6); CARBON DIOXIDE LEVEL 29 MMOL/L (20-31); CHLORIDE LEVEL 106 MMOL/L (98-107); CHOLESTEROL LEVEL 195 MG/DL (<200); CHOLESTEROL RISK RATIO 3.46 (<5); CREATININE FOR GFR 0.88 MG/DL (0.55-1.30); GLOMERULAR FILTRATION RATE > 60.0 (>39); GLUCOSE, FASTING 100 MG/DL (74-106); HDL CHOLESTEROL 56.3 MG/DL (>40); LDL CHOLESTEROL 116.7 MG/DL (<100); NON-HDL-C 138.7 MG/DL; POTASSIUM SERUM 4.3 MMOL/L (3.5-5.1); SODIUM LEVEL 140 MMOL/L (136-145); TRIGLYCERIDES LEVEL 110 MG/DL (<150)
[2024-03-14 19:25] LABS: THYROID STIMULATING HORMONE 1.665 uIU/ML (0.55-4.78)
[2024-03-14 19:27] LABS: FREE T4 1.21 NG/DL (0.89-1.76)
[2024-03-14 20:12] LABS: PLATELET COUNT, AUTOMATED 51 10^3/uL (150-450)
[2024-03-14 20:18] LABS: ANISOCYTOSIS 1+; EOSINOPHILS 9 % (0-3); LYMPHOCYTES 57 % (16-44); MONOCYTES 2 % (0-5); NEUTROPHILS 32 % (28-66); PLATELET ESTIMATE DECREASED (NORMAL)
[2024-03-16 08:22] LABS: Hemoglobin A1c 4.8 (<5.7)
== END ==
LOC: M SFHCADAM 12:00
PROVIDERS: ATTEND Physician Assistant
DX: I11.9 Hypertensive heart disease without heart failure (principal); Z13.220 Encounter for screening for lipoid disorders; K21.9 Gastro-esophageal reflux disease without esophagitis; Z13.1 Encounter for screening for diabetes mellitus

== ENCOUNTER → 2024-05-17 | Outpatient (REF) | payer OTHER, MEDICAID ==
[~2024-05-17] MED LIST changes: +LEVO1TAB39 PO; +ZANU80CA PO
[2024-05-17 18:13] LABS: BASO % 2.7 % (0.0-1.0); EOS % 3.5 % (0.0-3.0); HEMATOCRIT 25.6 % (36.0-47.0); HEMOGLOBIN 8.5 g/dl (12.0-15.5); LYMPH # 0.8 10^3/uL (1.5-5.0); LYMPH % 74.3 % (24.0-44.0); MEAN CORPUSCULAR HEMOGLOBIN 33.1 pg (27.0-33.0); MEAN CORPUSCULAR HGB CONC 33.2 g/dl (32.0-36.5); MEAN CORPUSCULAR VOLUME 99.6 fl (80.0-96.0); MONO % 3.5 % (2.0-8.0); NEUTROPHILS % 15.1 % (36.0-66.0); RED BLOOD COUNT 2.57 10^6/uL (4.00-5.40); WHITE BLOOD COUNT 1.1 10^3/uL (4.0-10.0)
[2024-05-17 18:28] LABS: NEUTROPHILS # 0.2 10^3/uL (1.5-8.5); PLATELET COUNT, AUTOMATED 48 10^3/uL (150-450)
== END ==
LOC: M LABDRWAD 17:28
PROVIDERS: ATTEND Specialist
DX: C88.00 Waldenstrom macroglobulinemia not having achieved remission (principal); Z79.899 Other long term (current) drug therapy

== ENCOUNTER → 2024-05-29 | Outpatient (REF) | payer OTHER, MEDICAID ==
[2024-05-29 13:47] LABS: BASO % 2.3 % (0.0-1.0); EOS % 2.3 % (0.0-3.0); HEMATOCRIT 22.4 % (36.0-47.0); HEMOGLOBIN 7.5 g/dl (12.0-15.5); LYMPH % 75.8 % (24.0-44.0); MEAN CORPUSCULAR HEMOGLOBIN 33.2 pg (27.0-33.0); MEAN CORPUSCULAR HGB CONC 33.5 g/dl (32.0-36.5); MEAN CORPUSCULAR VOLUME 99.1 fl (80.0-96.0); MONO # 0.1 10^3/uL (0.0-0.8); MONO % 4.7 % (2.0-8.0); NEUTROPHILS % 14.1 % (36.0-66.0); RED BLOOD COUNT 2.26 10^6/uL (4.00-5.40); WHITE BLOOD COUNT 1.3 10^3/uL (4.0-10.0)
[2024-05-29 13:50] LABS: NEUTROPHILS # 0.2 10^3/uL (1.5-8.5); PLATELET COUNT, AUTOMATED 57 10^3/uL (150-450)
== END ==
LOC: M LABDRWAD 12:53
PROVIDERS: ATTEND Specialist
DX: D89.0 Polyclonal hypergammaglobulinemia (principal)

== ENCOUNTER → 2024-05-30 | Outpatient (CLI) | payer OTHER, MEDICAID ==
[~2024-05-30] MED LIST changes: +LIDOCAINE 1% MDV 20ML VIAL As Ordered ONE
[2024-05-30 08:20] VITALS: TEMP 97.5
[2024-05-30 09:20] VITALS: BP 125/64; O2SAT 100
[2024-05-30 10:03] LABS: BASO % 2.6 % (0.0-1.0); EOS % 2.6 % (0.0-3.0); LYMPH # 0.5 10^3/uL (1.5-5.0); LYMPH % 65.4 % (24.0-44.0); MEAN CORPUSCULAR HEMOGLOBIN 33.7 pg (27.0-33.0); MEAN CORPUSCULAR HGB CONC 34.5 g/dl (32.0-36.5); MEAN CORPUSCULAR VOLUME 97.5 fl (80.0-96.0); MONO % 5.1 % (2.0-8.0); RED BLOOD COUNT 2.02 10^6/uL (4.00-5.40)
[2024-05-30 10:04] LABS: HEMATOCRIT 19.7 % (36.0-47.0); HEMOGLOBIN 6.8 g/dl (12.0-15.5); NEUTROPHILS # 0.2 10^3/uL (1.5-8.5); PLATELET COUNT, AUTOMATED 42 10^3/uL (150-450); WHITE BLOOD COUNT 0.8 10^3/uL (4.0-10.0)
== END ==
LOC: M IRPRO 08:11
PROVIDERS: ATTEND Specialist
DX: C88.00 Waldenstrom macroglobulinemia not having achieved remission (principal); D61.818 Other pancytopenia

== ENCOUNTER 2024-05-31 11:05 | Outpatient (CLI) | payer OTHER, MEDICAID ==
[~2024-05-31] VITALS: Ht 154.9 cm; Wt 63.0 kg
[~2024-05-31 11:05] MED LIST changes: -LIDOCAINE 1% MDV 20ML VIAL As Ordered ONE
[2024-05-31] MEDS ORDERED: NS (Normal Saline) 0.9% 250 ML IV ONE (11:30)
[2024-05-31] MEDS: diphenhydrAMINE 25MG CAP PO ONE (11:44)
[2024-05-31] MEDS: ACETAMINOPHEN 650 MG PO ONE (11:44)
[2024-05-31 12:15] VITALS: BP 135/60; TEMP 97.1; O2SAT 100
[2024-05-31 12:35] VITALS: BP 119/59; TEMP 97.4; O2SAT 100
[2024-05-31 13:35] VITALS: BP 138/67; TEMP 98; O2SAT 100
[2024-05-31 14:45] VITALS: BP 127/62; TEMP 97.3; O2SAT 100
== END 2024-05-31 14:45 | disposition home or self-care (01) ==
LOC: M INFU 11:05
PROVIDERS: ATTEND Specialist
DX: C88.00 Waldenstrom macroglobulinemia not having achieved remission (principal); Z88.8 Allergy status to other drugs, medicaments and biological substances
CPT/HCPCS: 36415; 36430; 86850; 86900; 86901; 86920; P9016

== ENCOUNTER → 2024-06-02 | Outpatient (REF) | payer OTHER, MEDICAID ==
[2024-06-02 18:31] LABS: BASO % 0.8 % (0.0-1.0); EOS % 1.6 % (0.0-3.0); HEMATOCRIT 27.4 % (36.0-47.0); LYMPH # 0.9 10^3/uL (1.5-5.0); LYMPH % 70.6 % (24.0-44.0); MEAN CORPUSCULAR HEMOGLOBIN 31.8 pg (27.0-33.0); MEAN CORPUSCULAR HGB CONC 32.8 g/dl (32.0-36.5); MEAN CORPUSCULAR VOLUME 96.8 fl (80.0-96.0); MONO # 0.1 10^3/uL (0.0-0.8); NEUTROPHILS % 21.4 % (36.0-66.0); RED BLOOD COUNT 2.83 10^6/uL (4.00-5.40); WHITE BLOOD COUNT 1.3 10^3/uL (4.0-10.0)
[2024-06-02 18:32] LABS: NEUTROPHILS # 0.3 10^3/uL (1.5-8.5); PLATELET COUNT, AUTOMATED 48 10^3/uL (150-450)
[2024-06-02 18:50] LABS: ALBUMIN 3.9 G/DL (3.2-5.2); BILIRUBIN,TOTAL 0.9 MG/DL (0.3-1.2); CALCIUM LEVEL 9.1 MG/DL (8.3-10.6); CREATININE FOR GFR 1.1 MG/DL (0.55-1.30); GLOMERULAR FILTRATION RATE 52.1 (>39); IMMUNOGLOBULIN A 66.5 MG/DL (40-350); POTASSIUM SERUM 4.2 MMOL/L (3.5-5.1); TOTAL PROTEIN 6.2 G/DL (5.7-8.2)
[2024-06-02 18:51] LABS: IMMUNOGLOBULIN M 58.3 MG/DL (50-300)
== END ==
LOC: M LABDRWAD 17:13
PROVIDERS: ATTEND Specialist
DX: C88.00 Waldenstrom macroglobulinemia not having achieved remission (principal); Z85.3 Personal history of malignant neoplasm of breast; I10 Essential (primary) hypertension

== ENCOUNTER 2024-09-01 18:27 | Observation (INO) | payer OTHER, MEDICAID ==
[~2024-09-01] VITALS: Ht 157.5 cm; Wt 59.2 kg
[2024-09-01 18:00] VITALS: BP 184/80; TEMP 97.5; O2SAT 94
[~2024-09-01 18:27] MED LIST changes: +ACYC1TAB; +ACYC1TAB PO; +CITA20TA6; +CITA20TA6 PO; +FLON1SPR NARES; +LOSA100T46; +LOSA100T46 PO; +NORMINJ22 IVFLUSH; +NYST-38 SS; +ONDA-84 PO; +POSA100T PO; +PROC10TA5 PO; +SENN-187 PO; +VENC100T PO
[2024-09-01] MEDS ORDERED: ACETAMINOPHEN 325 MG TAB PO PRN (18:35)
[2024-09-01] MEDS ORDERED: MOM 30ML SUSPENSION UDC PO PRN (18:35)
[2024-09-01] MEDS ORDERED: HOME MED LIST COMPLETE! XX SCH (19:40)
[2024-09-01 19:51] VITALS: BP 154/64; TEMP 97; O2SAT 100
[2024-09-01 19:55] LABS: INR 1.01; PARTIAL THROMBOPLASTIN TIME 27.9 SECONDS (24.8-34.2); PROTHROMBIN TIME 13.6 SECONDS (12.5-14.5)
[2024-09-01] MEDS: DOCUSATE SODIUM 100MG CAPSULE PO SCH (20:22)
[2024-09-01] MEDS ORDERED: PROCHLORPERAZINE 5MG TAB PO PRN (20:30)
[2024-09-01] MEDS ORDERED: ONDANSETRON 4MG TAB PO PRN (20:30)
[2024-09-01] MEDS ORDERED: SENNA 8.6 MG TAB (SENOKOT) PO PRN (20:30)
[2024-09-01] MEDS: FILGRASTIM 300MCG 0.5ML SYRINGE **SC ADMINISTRATION ONLY SC SCH (20:34)
[2024-09-01 22:02] VITALS: BP 148/80; TEMP 97.3; O2SAT 99
[2024-09-01] MEDS: ACYCLOVIR 200 MG CAPSULE PO SCH (22:23)
[2024-09-01 23:18] VITALS: BP 142/80; TEMP 97.2; O2SAT 99
[2024-09-02 02:20] VITALS: BP 142/78; TEMP 98.6; O2SAT 99
[2024-09-02 02:35] VITALS: BP 138/84; TEMP 98.3; O2SAT 100
[2024-09-02 03:30] VITALS: BP 146/86; TEMP 96.3; TEMP 98.3; O2SAT 100
[2024-09-02 04:00] VITALS: BP 146/86; TEMP 98.3; O2SAT 100
[2024-09-02] MEDS: LevoFLOXacin 500 MG TABLET PO SCH (05:38)
[2024-09-02 05:56] LABS: HEMATOCRIT 23.5 % (36.0-47.0); HEMOGLOBIN 7.8 g/dl (12.0-15.5); LYMPH # 0.1 10^3/uL (1.5-5.0); LYMPH % 88.9 % (24.0-44.0); MEAN CORPUSCULAR HEMOGLOBIN 31.2 pg (27.0-33.0); MEAN CORPUSCULAR HGB CONC 33.2 g/dl (32.0-36.5); NEUTROPHILS % 11.1 % (36.0-66.0)
[2024-09-02 06:13] LABS: PLATELET COUNT, AUTOMATED 12 10^3/uL (150-450); WHITE BLOOD COUNT 0.1 10^3/uL (4.0-10.0)
[2024-09-02 06:18] LABS: BLOOD UREA NITROGEN 16 MG/DL (9-23); CALCIUM LEVEL 8.1 MG/DL (8.3-10.6); CARBON DIOXIDE LEVEL 28 MMOL/L (20-31); CHLORIDE LEVEL 107 MMOL/L (98-107); CREATININE FOR GFR 0.69 MG/DL (0.55-1.30); GLOMERULAR FILTRATION RATE > 90.0 (>39); GLUCOSE, FASTING 112 MG/DL (74-106); POTASSIUM SERUM 3.1 MMOL/L (3.5-5.1); SODIUM LEVEL 144 MMOL/L (136-145)
[2024-09-02 08:00] VITALS: BP 140/62; TEMP 97.8; O2SAT 98
[2024-09-02 08:52] VITALS: BP 158/78
[2024-09-02] MEDS: LOSARTAN 50MG TABLET PO SCH (08:52)
[2024-09-02] MEDS: FLUTICASONE PROP 0.05% NASAL SPRAY 16 GM (FLONASE) NARES SCH (08:52)
[2024-09-02] MEDS: POTASSIUM CHLORIDE 10MEQ SR TABLET PO ONE (08:53)
[2024-09-02] MEDS: PANTOPRAZOLE 40MG TAB (PROTONIX) PO SCH (08:53)
[2024-09-02] MEDS: CitaloPRAM (CeleXA) 20 MG TAB PO SCH (08:53)
[2024-09-02] MEDS: FILGRASTIM 300MCG 0.5ML SYRINGE **SC ADMINISTRATION ONLY SC ONE (10:24)
== END 2024-09-02 10:40 | disposition home or self-care (01) ==
LOC: INTOOBSV 18:27 → M PCU 18:27
PROVIDERS: ADMIT Student in an Organized Health Care Education/Training Program; ATTEND Student in an Organized Health Care Education/Training Program
DX: D61.810 Antineoplastic chemotherapy induced pancytopenia (principal); C92.01 Acute myeloblastic leukemia, in remission; C50.019 Malignant neoplasm of nipple and areola, unspecified female breast; C88.01 Waldenstrom macroglobulinemia, in remission; Z88.8 Allergy status to other drugs, medicaments and biological substances; Z79.899 Other long term (current) drug therapy; Z79.2 Long term (current) use of antibiotics
CPT/HCPCS: 36415; 36430; 80048; 80053; 85025; 85049; 85055; 85610; 85730; 86850; 86900; 86901; 86920; 96372; G0378; G0463; J1442; P9034; P9040

== ENCOUNTER 2024-09-08 14:59 | Inpatient (IN) | payer OTHER, MEDICAID ==
[2024-09-08] MEDS ORDERED: SODIUM CHLORIDE 0.9% INJ 10 ML SYR IV PRN (16:35)
[2024-09-08] MEDS ORDERED: SODIUM CHLORIDE 0.9% INJ 10 ML SYR IV SCH (18:00)
[2024-09-08] MEDS ORDERED: CEPH500C PO (18:02)
[2024-09-08] MEDS ORDERED: HOME MED LIST COMPLETE! XX SCH (18:05)
[2024-09-08] MEDS ORDERED: MOM 30ML SUSPENSION UDC PO PRN (18:25)
[2024-09-08] MEDS ORDERED: MAALOX 30 ML SUSP *UDC PO PRN (18:25)
[2024-09-08] MEDS ORDERED: SENNA 8.6 MG TAB (SENOKOT) PO PRN (18:25)
[2024-09-08] MEDS ORDERED: ACETAMINOPHEN 325 MG TAB PO PRN (18:25)
[2024-09-08 19:36] VITALS: BP 184/81; TEMP 97.2; O2SAT 97
[2024-09-08] MEDS: HYDROCORTISONE 100MG/2ML VIAL IV ONE (21:03)
[2024-09-08 21:45] VITALS: BP 171/79; TEMP 98.2; O2SAT 100
[2024-09-08 21:50] VITALS: BP 176/84; TEMP 97.2; O2SAT 100
[2024-09-08] MEDS: cefTRIAXone SOD 2 GM in DEXTROSE 5% (D5W) ADV/MINI-BAG 50 ML IV SCH (22:39)
[2024-09-08 23:33] VITALS: BP 165/78; TEMP 97.7; O2SAT 100
[2024-09-08 23:55] VITALS: BP 155/70; TEMP 97.7; O2SAT 99
[2024-09-09] VITALS (15 sets, daily range): BP systolic 140–180; BP diastolic 74–92; TEMP 97–97.5; O2SAT 97–99
[2024-09-09] MEDS: ACYCLOVIR 200 MG CAPSULE PO SCH (01:07)
[2024-09-09 05:27] LABS: LYMPH # 0.2 10^3/uL (1.5-5.0); MEAN CORPUSCULAR HEMOGLOBIN 32.5 pg (27.0-33.0); MEAN CORPUSCULAR HGB CONC 35.1 g/dl (32.0-36.5); MEAN CORPUSCULAR VOLUME 92.5 fl (80.0-96.0)
[2024-09-09 05:30] LABS: HEMATOCRIT 18.5 % (36.0-47.0); WHITE BLOOD COUNT 0.2 10^3/uL (4.0-10.0)
[2024-09-09 05:31] LABS: HEMOGLOBIN 6.5 g/dl (12.0-15.5); PLATELET COUNT, AUTOMATED 20 10^3/uL (150-450)
[2024-09-09 05:52] LABS: CALCIUM LEVEL 8.2 MG/DL (8.3-10.6); CREATININE FOR GFR 0.74 MG/DL (0.55-1.30); GLOMERULAR FILTRATION RATE 86.4 (>39); POTASSIUM SERUM 3.4 MMOL/L (3.5-5.1)
[2024-09-09] MEDS: LOSARTAN 50MG TABLET PO SCH (06:57)
[2024-09-09] MEDS: KCL 10MEQ/100ML SWI (KRUN) 10 MEQ in IV 1 EA IV SCH (06:59)
[2024-09-09] MEDS ORDERED: LOSARTAN 50MG TABLET PO SCH (09:00)
[2024-09-09] MEDS: FLUTICASONE PROP 0.05% NASAL SPRAY 16 GM (FLONASE) NARES SCH (09:52)
[2024-09-09] MEDS: CitaloPRAM (CeleXA) 20 MG TAB PO SCH (09:52)
[2024-09-09] MEDS: LETROZOLE 2.5 MG TAB PO SCH (09:52)
[2024-09-09 11:34] LABS: THYROID STIMULATING HORMONE 0.961 uIU/ML (0.55-4.78); THYROXINE (T4) 6.2 UG/DL (4.5-10.9)
[2024-09-09] MEDS: HYDROCORTISONE 100MG/2ML VIAL IV ONE (13:41)
[2024-09-09] MEDS: FUROSEMIDE 20MG/2ML VIAL IV ONE (13:41)
[2024-09-09 18:45] LABS: HEMATOCRIT 27.5 % (36.0-47.0); LYMPH # 0.1 10^3/uL (1.5-5.0); LYMPH % 77.8 % (24.0-44.0); MEAN CORPUSCULAR HEMOGLOBIN 30.7 pg (27.0-33.0); MEAN CORPUSCULAR VOLUME 85.1 fl (80.0-96.0); MONO % 5.6 % (2.0-8.0); NEUTROPHILS % 16.6 % (36.0-66.0); RED BLOOD COUNT 3.23 10^6/uL (4.00-5.40)
[2024-09-09 18:46] LABS: HEMOGLOBIN 9.9 g/dl (12.0-15.5); WHITE BLOOD COUNT 0.2 10^3/uL (4.0-10.0)
[2024-09-09 18:47] LABS: PLATELET COUNT, AUTOMATED 39 10^3/uL (150-450)
[2024-09-10 03:28] VITALS: BP 145/70; TEMP 97.5; O2SAT 95
[2024-09-10 05:27] LABS: HEMATOCRIT 24.6 % (36.0-47.0); HEMOGLOBIN 8.8 g/dl (12.0-15.5); LYMPH # 0.2 10^3/uL (1.5-5.0); LYMPH % 76.2 % (24.0-44.0); MEAN CORPUSCULAR HEMOGLOBIN 29.9 pg (27.0-33.0); MEAN CORPUSCULAR HGB CONC 35.8 g/dl (32.0-36.5); MEAN CORPUSCULAR VOLUME 83.7 fl (80.0-96.0); MONO % 4.8 % (2.0-8.0); RED BLOOD COUNT 2.94 10^6/uL (4.00-5.40)
[2024-09-10 05:40] LABS: WHITE BLOOD COUNT 0.2 10^3/uL (4.0-10.0)
[2024-09-10 05:41] LABS: PLATELET COUNT, AUTOMATED 32 10^3/uL (150-450)
[2024-09-10 06:02] LABS: BLOOD UREA NITROGEN 18 MG/DL (9-23); CALCIUM LEVEL 8.4 MG/DL (8.3-10.6); CARBON DIOXIDE LEVEL 30 MMOL/L (20-31); CHLORIDE LEVEL 106 MMOL/L (98-107); CREATININE FOR GFR 0.63 MG/DL (0.55-1.30); GLOMERULAR FILTRATION RATE > 90.0 (>39); GLUCOSE, FASTING 96 MG/DL (74-106); SODIUM LEVEL 144 MMOL/L (136-145)
[2024-09-10] MEDS: POTASSIUM CHLORIDE 10MEQ SR TABLET PO ONE (08:33)
[2024-09-10] MEDS: KCL 10MEQ/100ML SWI (KRUN) 10 MEQ in IV 1 EA IV SCH (08:34)
[2024-09-10] MEDS ORDERED: CALCIUM CHLORIDE 10% 1 GM in D5W 100 ML IV ONE (09:00)
[2024-09-10] MEDS: CALCIUM CARBONATE 500 MG CHEW U/D PO ONE (12:10)
[2024-09-10 14:00] VITALS: BP 178/82; TEMP 97.5; O2SAT 94
[2024-09-10 15:39] LABS: CALCIUM LEVEL 8.3 MG/DL (8.3-10.6); CREATININE FOR GFR 0.75 MG/DL (0.55-1.30); GLOMERULAR FILTRATION RATE 85.1 (>39); POTASSIUM SERUM 3.6 MMOL/L (3.5-5.1)
[2024-09-10] MEDS: CALCIUM CARBONATE 500 MG CHEW U/D PO SCH (16:57)
[2024-09-10 17:44] VITALS: BP 168/90
[2024-09-10] MEDS: **hydrALAZINE** 10 MG TAB PO SCH (18:07)
[2024-09-10 19:59] VITALS: BP 178/90; TEMP 97.5; O2SAT 100
[2024-09-11 00:15] VITALS: BP 162/80
[2024-09-11 04:28] VITALS: BP 178/82; TEMP 97.5; O2SAT 99
[2024-09-11 05:57] LABS: HEMATOCRIT 26.3 % (36.0-47.0); HEMOGLOBIN 9.3 g/dl (12.0-15.5); LYMPH # 0.2 10^3/uL (1.5-5.0); LYMPH % 83.3 % (24.0-44.0); MEAN CORPUSCULAR HEMOGLOBIN 29.8 pg (27.0-33.0); MEAN CORPUSCULAR HGB CONC 35.4 g/dl (32.0-36.5); MEAN CORPUSCULAR VOLUME 84.3 fl (80.0-96.0); MONO % 5.6 % (2.0-8.0); NEUTROPHILS % 11.1 % (36.0-66.0); RED BLOOD COUNT 3.12 10^6/uL (4.00-5.40)
[2024-09-11 05:59] LABS: PLATELET COUNT, AUTOMATED 26 10^3/uL (150-450)
[2024-09-11 06:00] LABS: WHITE BLOOD COUNT 0.2 10^3/uL (4.0-10.0)
[2024-09-11 06:22] LABS: CREATININE FOR GFR 0.78 MG/DL (0.55-1.30); GLOMERULAR FILTRATION RATE 81.2 (>39); POTASSIUM SERUM 3.6 MMOL/L (3.5-5.1)
[2024-09-11] MEDS: **hydrALAZINE HCL** 25 MG TAB PO SCH (09:19)
[2024-09-11 12:00] VITALS: BP 172/88; TEMP 98.2; O2SAT 100
[2024-09-11 12:35] VITALS: BP 180/80
[2024-09-11 20:20] VITALS: BP 160/80; TEMP 97.3; O2SAT 98
[2024-09-12 04:27] VITALS: BP 160/78; TEMP 97.3; O2SAT 100
[2024-09-12 06:17] LABS: HEMATOCRIT 25.6 % (36.0-47.0); LYMPH # 0.2 10^3/uL (1.5-5.0); LYMPH % 78.3 % (24.0-44.0); MEAN CORPUSCULAR HEMOGLOBIN 29.5 pg (27.0-33.0); MEAN CORPUSCULAR HGB CONC 35.2 g/dl (32.0-36.5); MEAN CORPUSCULAR VOLUME 83.9 fl (80.0-96.0); MONO % 8.7 % (2.0-8.0); RED BLOOD COUNT 3.05 10^6/uL (4.00-5.40)
[2024-09-12 06:20] LABS: WHITE BLOOD COUNT 0.2 10^3/uL (4.0-10.0)
[2024-09-12 06:21] LABS: PLATELET COUNT, AUTOMATED 19 10^3/uL (150-450)
[2024-09-12 06:29] LABS: CALCIUM LEVEL 8.5 MG/DL (8.3-10.6); CREATININE FOR GFR 0.77 MG/DL (0.55-1.30); GLOMERULAR FILTRATION RATE 82.4 (>39); POTASSIUM SERUM 3.7 MMOL/L (3.5-5.1)
[2024-09-12 12:00] VITALS: BP 150/74; TEMP 97.9; O2SAT 100
[2024-09-12 17:42] VITALS: BP 142/78; TEMP 97.3; O2SAT 100
[2024-09-12 20:05] VITALS: BP 152/76; TEMP 97.3; O2SAT 99
[2024-09-12 21:55] VITALS: BP 144/72; TEMP 97; O2SAT 100
[2024-09-12 22:40] VITALS: BP 160/78; TEMP 97.3; O2SAT 100
[2024-09-13 01:00] VITALS: BP 144/72; TEMP 97.3; O2SAT 98
[2024-09-13 03:57] VITALS: BP 138/60; TEMP 97.3; O2SAT 98
[2024-09-13 05:40] LABS: HEMATOCRIT 23.9 % (36.0-47.0); HEMOGLOBIN 8.5 g/dl (12.0-15.5); LYMPH # 0.2 10^3/uL (1.5-5.0); MEAN CORPUSCULAR HEMOGLOBIN 29.6 pg (27.0-33.0); MEAN CORPUSCULAR HGB CONC 35.6 g/dl (32.0-36.5); MEAN CORPUSCULAR VOLUME 83.3 fl (80.0-96.0); RED BLOOD COUNT 2.87 10^6/uL (4.00-5.40)
[2024-09-13 05:53] LABS: WHITE BLOOD COUNT 0.2 10^3/uL (4.0-10.0)
[2024-09-13 05:56] LABS: PLATELET COUNT, AUTOMATED 26 10^3/uL (150-450)
[2024-09-13 06:05] LABS: CALCIUM LEVEL 8.2 MG/DL (8.3-10.6); CREATININE FOR GFR 0.78 MG/DL (0.55-1.30); GLOMERULAR FILTRATION RATE 81.2 (>39); MAGNESIUM LEVEL 1.8 MG/DL (1.8-2.4); POTASSIUM SERUM 3.8 MMOL/L (3.5-5.1)
[2024-09-13 08:39] VITALS: BP 142/58
[2024-09-13] MEDS ORDERED: MINO2.5T PO (11:19)
[2024-09-13] MEDS ORDERED: PROBCAP14 PO (11:45)
[2024-09-13 12:00] VITALS: BP 134/61; TEMP 97.3; O2SAT 99
== END 2024-09-13 17:14 | disposition home or self-care (01) | DRG 809 ==
LOC: M ED 14:59 → M ED INP 18:21 → M MSPAV 21:50
PROVIDERS: ADMIT Student in an Organized Health Care Education/Training Program; ATTEND Student in an Organized Health Care Education/Training Program
PROC: 30233R1 Transfusion of Nonautologous Platelets into Peripheral Vein, Percutaneous Approach (ICD-10-PCS; principal; 2024-09-08)
PROC: 30233N1 Transfusion of Nonautologous Red Blood Cells into Peripheral Vein, Percutaneous Approach (ICD-10-PCS; 2024-09-08)
DX: D61.810 Antineoplastic chemotherapy induced pancytopenia (principal); C92.00 Acute myeloblastic leukemia, not having achieved remission; K21.9 Gastro-esophageal reflux disease without esophagitis; I10 Essential (primary) hypertension; F32.A Depression, unspecified; F41.9 Anxiety disorder, unspecified; Z85.3 Personal history of malignant neoplasm of breast; L03.012 Cellulitis of left finger; Z79.899 Other long term (current) drug therapy; Z88.8 Allergy status to other drugs, medicaments and biological substances; Z79.69 Long term (current) use of other immunomodulators and immunosuppressants

== ENCOUNTER → 2024-12-05 | Outpatient (REF) | payer OTHER, MEDICAID ==
[~2024-12-05] MED LIST changes: +ACYC-438; +ACYC-438 PO; -ACYC1TAB; -ACYC1TAB PO; +CEPH500C PO; +MINO2.5T PO; +PROBCAP14 PO
[2024-12-05 14:35] LABS: LDH LACTATE DEHYDROGENASE 161.0 U/L (120-246)
[2024-12-05 14:36] LABS: ALT/SGPT 73.0 U/L (7.0-40); AST/SGOT 32.0 U/L (<34); CALCIUM LEVEL 8.8 MG/DL (8.3-10.6); CARBON DIOXIDE LEVEL 27.0 MMOL/L (20-31); CHLORIDE LEVEL 105.0 MMOL/L (98-107); CREATININE FOR GFR 1.06 MG/DL (0.55-1.30); GLOMERULAR FILTRATION RATE 56.2 (>39); MAGNESIUM LEVEL 2.2 MG/DL (1.8-2.4); PHOSPHORUS LEVEL 3.5 MG/DL (2.4-5.1); POTASSIUM SERUM 4.1 MMOL/L (3.5-5.1); SODIUM LEVEL 144.0 MMOL/L (136-145)
[2024-12-05 15:08] LABS: PLATELET COUNT, AUTOMATED 94 10^3/uL (150-450)
== END ==
LOC: M LABDRWAD 13:07
DX: C88.00 Waldenstrom macroglobulinemia not having achieved remission (principal); Z79.899 Other long term (current) drug therapy

== ENCOUNTER → 2024-12-11 | Outpatient (CLI) | payer OTHER, MEDICAID ==
[~2024-12-11] MED LIST changes: +AMLO1TAB25; +CLOT10TR11 PO; +DICY-61; +FAMO1TAB11; +LOPE1CAP5 PO; +LOSA50TA28 PO; +MINO10TA; +SIME1CHW5; +SULF400T14; +VITA200032; +[UNRECOGNIZED DRUG - CODE]
[2024-12-11 13:54] LABS: PLATELET COUNT, AUTOMATED 90 10^3/uL (150-450)
[2024-12-11 14:08] LABS: LDH LACTATE DEHYDROGENASE 192.0 U/L (120-246)
[2024-12-11 14:10] LABS: ALT/SGPT 34.0 U/L (7.0-40); AST/SGOT 26.0 U/L (<34); CALCIUM LEVEL 9.1 MG/DL (8.3-10.6); CARBON DIOXIDE LEVEL 27.0 MMOL/L (20-31); CHLORIDE LEVEL 101.0 MMOL/L (98-107); CREATININE FOR GFR 0.95 MG/DL (0.55-1.30); GLOMERULAR FILTRATION RATE 64.1 (>39); MAGNESIUM LEVEL 2.3 MG/DL (1.8-2.4); PHOSPHORUS LEVEL 3.8 MG/DL (2.4-5.1); POTASSIUM SERUM 4.3 MMOL/L (3.5-5.1); SODIUM LEVEL 140.0 MMOL/L (136-145)
== END ==
LOC: M LABDRWAD 08:37
DX: C92.00 Acute myeloblastic leukemia, not having achieved remission (principal)

== ENCOUNTER → 2025-01-01 | Outpatient (CLI) | payer OTHER, MEDICAID ==
[2025-01-01 13:32] LABS: LDH LACTATE DEHYDROGENASE 145.0 U/L (120-246)
[2025-01-01 13:47] LABS: PLATELET COUNT, AUTOMATED 88 10^3/uL (150-450)
[2025-01-01 14:07] LABS: ALT/SGPT 51.0 U/L (7.0-40); AST/SGOT 33.0 U/L (<34); CALCIUM LEVEL 9.4 MG/DL (8.3-10.6); CARBON DIOXIDE LEVEL 29.0 MMOL/L (20-31); CHLORIDE LEVEL 104.0 MMOL/L (98-107); CREATININE FOR GFR 0.91 MG/DL (0.55-1.30); GLOMERULAR FILTRATION RATE 67.5 (>39); MAGNESIUM LEVEL 2.2 MG/DL (1.8-2.4); PHOSPHORUS LEVEL 4.0 MG/DL (2.4-5.1); POTASSIUM SERUM 4.9 MMOL/L (3.5-5.1); SODIUM LEVEL 143.0 MMOL/L (136-145)
== END ==
LOC: M LABDRWAD 09:35
DX: C92.00 Acute myeloblastic leukemia, not having achieved remission (principal)

== ENCOUNTER → 2025-01-09 | Outpatient (REF) | payer OTHER, MEDICAID ==
[2025-01-09 14:27] LABS: BASO # 0.0 10^3/uL (0.0-0.2); BASO % 1.8 % (0.0-1.0); EOS # 0.2 10^3/uL (0.0-0.5); EOS % 9.3 % (0.0-3.0); LDH LACTATE DEHYDROGENASE 123.0 U/L (120-246); LYMPH # 1.0 10^3/uL (1.5-5.0); LYMPH % 44.9 % (24.0-44.0); MONO # 0.2 10^3/uL (0.0-0.8); MONO % 10.1 % (2.0-8.0); NEUTROPHILS % 33.9 % (36.0-66.0)
[2025-01-09 14:28] LABS: ALT/SGPT 63.0 U/L (7.0-40); AST/SGOT 38.0 U/L (<34); CALCIUM LEVEL 8.8 MG/DL (8.3-10.6); CARBON DIOXIDE LEVEL 28.0 MMOL/L (20-31); CHLORIDE LEVEL 106.0 MMOL/L (98-107); CREATININE FOR GFR 0.85 MG/DL (0.55-1.30); GLOMERULAR FILTRATION RATE 73.2 (>39); MAGNESIUM LEVEL 2.0 MG/DL (1.8-2.4); PHOSPHORUS LEVEL 3.4 MG/DL (2.4-5.1); POTASSIUM SERUM 4.1 MMOL/L (3.5-5.1); SODIUM LEVEL 140.0 MMOL/L (136-145)
[2025-01-09 15:02] LABS: NEUTROPHILS # 0.8 10^3/uL (1.5-8.5); PLATELET COUNT, AUTOMATED 53 10^3/uL (150-450)
== END ==
LOC: M LABDRWAD 12:51
DX: C92.00 Acute myeloblastic leukemia, not having achieved remission (principal)

== ENCOUNTER → 2025-01-15 | Outpatient (REF) | payer OTHER, MEDICAID ==
[2025-01-15 13:39] LABS: LDH LACTATE DEHYDROGENASE 117.0 U/L (120-246)
[2025-01-15 13:40] LABS: ALT/SGPT 49.0 U/L (7.0-40); AST/SGOT 27.0 U/L (<34); CALCIUM LEVEL 9.1 MG/DL (8.3-10.6); CARBON DIOXIDE LEVEL 30.0 MMOL/L (20-31); CHLORIDE LEVEL 103.0 MMOL/L (98-107); CREATININE FOR GFR 1.12 MG/DL (0.55-1.30); GLOMERULAR FILTRATION RATE 52.6 (>39); MAGNESIUM LEVEL 2.2 MG/DL (1.8-2.4); PHOSPHORUS LEVEL 4.2 MG/DL (2.4-5.1); POTASSIUM SERUM 4.4 MMOL/L (3.5-5.1); SODIUM LEVEL 142.0 MMOL/L (136-145)
[2025-01-15 13:53] LABS: PLATELET COUNT, AUTOMATED 109 10^3/uL (150-450)
== END ==
LOC: M LABDRAWC 12:50
DX: C88.00 Waldenstrom macroglobulinemia not having achieved remission (principal); Z79.899 Other long term (current) drug therapy

== ENCOUNTER → 2025-01-22 | Outpatient (REF) | payer OTHER, MEDICAID ==
[2025-01-22 15:47] LABS: PLATELET COUNT, AUTOMATED 200 10^3/uL (150-450)
[2025-01-22 15:50] LABS: LDH LACTATE DEHYDROGENASE 122.0 U/L (120-246)
[2025-01-22 15:51] LABS: ALT/SGPT 79.0 U/L (7.0-40); AST/SGOT 46.0 U/L (<34); CALCIUM LEVEL 8.9 MG/DL (8.3-10.6); CARBON DIOXIDE LEVEL 30.0 MMOL/L (20-31); CHLORIDE LEVEL 104.0 MMOL/L (98-107); CREATININE FOR GFR 0.97 MG/DL (0.55-1.30); GLOMERULAR FILTRATION RATE 62.5 (>39); MAGNESIUM LEVEL 2.1 MG/DL (1.8-2.4); PHOSPHORUS LEVEL 4.5 MG/DL (2.4-5.1); POTASSIUM SERUM 4.6 MMOL/L (3.5-5.1); SODIUM LEVEL 141.0 MMOL/L (136-145)
== END ==
LOC: M LABDRWAD 14:12
DX: C88.00 Waldenstrom macroglobulinemia not having achieved remission (principal)

== ENCOUNTER → 2025-01-22 | Outpatient (REF) | payer OTHER, MEDICAID ==
[2025-01-22 14:21] LABS: FREE T4 1.07 NG/DL (0.89-1.76)
[2025-01-22 14:27] LABS: VITAMIN B12 LEVEL > 2000 PG/ML (211-911)
== END ==
LOC: M SFHCADAM 09:29
PROVIDERS: ATTEND Physician Assistant
DX: G62.9 Polyneuropathy, unspecified (principal); C88.00 Waldenstrom macroglobulinemia not having achieved remission; Z79.899 Other long term (current) drug therapy

== ENCOUNTER → 2025-01-29 | Outpatient (REF) | payer OTHER, MEDICAID ==
[2025-01-29 13:57] LABS: LDH LACTATE DEHYDROGENASE 126.0 U/L (120-246)
[2025-01-29 13:59] LABS: ALT/SGPT 61.0 U/L (7.0-40); AST/SGOT 39.0 U/L (<34); CALCIUM LEVEL 8.8 MG/DL (8.3-10.6); CARBON DIOXIDE LEVEL 29.0 MMOL/L (20-31); CHLORIDE LEVEL 105.0 MMOL/L (98-107); CREATININE FOR GFR 0.9 MG/DL (0.55-1.30); GLOMERULAR FILTRATION RATE 68.4 (>39); MAGNESIUM LEVEL 2.1 MG/DL (1.8-2.4); PHOSPHORUS LEVEL 3.4 MG/DL (2.4-5.1); POTASSIUM SERUM 4.4 MMOL/L (3.5-5.1); SODIUM LEVEL 141.0 MMOL/L (136-145)
[2025-01-29 14:02] LABS: BASO # 0.1 10^3/uL (0.0-0.2); BASO % 2.4 % (0.0-1.0); EOS # 0.1 10^3/uL (0.0-0.5); EOS % 4.7 % (0.0-3.0); LYMPH # 0.9 10^3/uL (1.5-5.0); LYMPH % 35.6 % (24.0-44.0); MONO # 0.4 10^3/uL (0.0-0.8); MONO % 14.6 % (2.0-8.0); NEUTROPHILS # 1.1 10^3/uL (1.5-8.5); NEUTROPHILS % 42.3 % (36.0-66.0); PLATELET COUNT, AUTOMATED 120 10^3/uL (150-450)
== END ==
LOC: M LABDRWAD 13:01
DX: C92.00 Acute myeloblastic leukemia, not having achieved remission (principal)

== ENCOUNTER → 2025-03-30 | Outpatient (REF) | payer OTHER, MEDICAID ==
[~2025-03-30] MED LIST changes: -SULF400T14; +SULF400T15
[2025-03-30 15:16] LABS: LDH LACTATE DEHYDROGENASE 143.0 U/L (120-246)
[2025-03-30 15:17] LABS: ALT/SGPT 65.0 U/L (7.0-40); AST/SGOT 40.0 U/L (<34); CALCIUM LEVEL 8.8 MG/DL (8.3-10.6); CARBON DIOXIDE LEVEL 31.0 MMOL/L (20-31); CHLORIDE LEVEL 104.0 MMOL/L (98-107); CREATININE FOR GFR 0.91 MG/DL (0.55-1.30); GLOMERULAR FILTRATION RATE 67.0 (>39); MAGNESIUM LEVEL 2.0 MG/DL (1.8-2.4); PHOSPHORUS LEVEL 3.7 MG/DL (2.4-5.1); POTASSIUM SERUM 4.1 MMOL/L (3.5-5.1); SODIUM LEVEL 143.0 MMOL/L (136-145)
[2025-03-30 15:38] LABS: PLATELET COUNT, AUTOMATED 108 10^3/uL (150-450)
== END ==
LOC: M LABDRWAD 13:14
DX: I11.9 Hypertensive heart disease without heart failure (principal); C92.00 Acute myeloblastic leukemia, not having achieved remission; C88.00 Waldenstrom macroglobulinemia not having achieved remission; Z94.84 Stem cells transplant status

== ENCOUNTER → 2025-05-08 | Outpatient (REF) | payer OTHER, MEDICAID ==
[~2025-05-08] MED LIST changes: +AMLO25TA PO
[2025-05-08 18:13] LABS: LDH LACTATE DEHYDROGENASE 121.0 U/L (120-246)
[2025-05-08 18:14] LABS: ALT/SGPT 120.0 U/L (7.0-40); AST/SGOT 60.0 U/L (<34); CALCIUM LEVEL 8.9 MG/DL (8.3-10.6); CARBON DIOXIDE LEVEL 30.0 MMOL/L (20-31); CHLORIDE LEVEL 103.0 MMOL/L (98-107); CREATININE FOR GFR 0.95 MG/DL (0.55-1.30); GLOMERULAR FILTRATION RATE 63.7 (>39); MAGNESIUM LEVEL 2.2 MG/DL (1.8-2.4); PHOSPHORUS LEVEL 4.1 MG/DL (2.4-5.1); POTASSIUM SERUM 4.5 MMOL/L (3.5-5.1); SODIUM LEVEL 138.0 MMOL/L (136-145)
[2025-05-08 18:31] LABS: PLATELET COUNT, AUTOMATED 71 10^3/uL (150-450)
== END ==
LOC: M LABDRWAD 17:13
DX: Z85.3 Personal history of malignant neoplasm of breast (principal)